=== PATIENT | female | born 1955 | race Caucasian/White ===

== ENCOUNTER 2023-03-28 08:29 | Outpatient (CLI) | payer OTHER, SELFPAY ==
--- NOTE | ~2023-03-28 | CT_ITS ---
CT Scan of the Chest without Contrast: Clinical Indication: Solitary pulmonary nodule Technique: Contiguous sections were acquired throughout the chest without intravenous contrast. Dose reduction technique was used on this scan by utilizing automated exposure control and iterative recon struction technique. The dose-length product (DLP) was 108.24 mGy-cm. Findings: There is no evidence of any significant mediastinal, hilar or axillary lymphadenopathy. The mediastin al soft tissues appear normal. There is a large hiatal hernia containing nearly entire stomach. There is no evidence of pleural or pericardial effusion. There is a 3 mm right lower lobe pulmonary nodule, with probable focal calcification (axial image 64) . There is an additional 3 mm right lower lobe pulmonary nodule (axial and 66). 2 mm right middle lob e pulmonary nodule present (axial image 76). There is a 5 mm pleural-based nodular opacity at the ext jackie right lung base (axial image 107). There is a 4 mm nodule at the left lung base (axial image 77) . Images through the upper abdomen reveal gallstones. Impression: Subcentimeter pulmonary nodules, as detailed above. According to Fleischner Society criteria, for a l ow-risk patient, no further follow-up required. For a high-risk patient, consider 12 month follow-up CT. Large hiatal hernia containing essentially the entire stomach. Cholelithiasis. Reviewed, dictated and finalized at location . Impression: Subcentimeter pulmonary nodules, as detailed above. According to Fleischner Soc iety criteria, for a low-risk patient, no further follow-up required. For a hig h-risk patient, consider 12 month follow-up CT. Large hiatal hernia containing essentially the entire stomach. Cholelithiasis.
== END 2023-03-28 08:30 | disposition home or self-care (01) ==
PROVIDERS: PCP Family Medicine; Visit Provider Physician Assistant
DX: R91.1 Solitary pulmonary nodule (principal); K80.20 Calculus of gallbladder without cholecystitis without obstruction; K44.9 Diaphragmatic hernia without obstruction or gangrene
CPT/HCPCS: 71250

== ENCOUNTER 2023-04-05 09:48 | Outpatient (CLI) | payer OTHER, SELFPAY ==
--- NOTE | 2023-04-05 10:11 | EST_ITS ---
Patient Info Name: Art York Age: 68 years : 1955 Gender: Female Ht: 63 in Wt: 161 lbs BSA: 1.82 m2 HR: 81 bpm BP: 157 / 81 mmHg Heart Rhythm: Sinus Rhythm Exam Date: 04/05/2023 10:20 AM Exam Location: [facility] Stress Patient Status: Outpatient Admit Date: 04/05/2023 Staff Ordering Physician: Taco Nath PA-C Attending Provider: Taco Nath PA-C Exercise Technologist: Kim Espino CT Exercise Physician: Saulo Holt DO Exam Type: CA stress test treadmill Study Info Indications R06.02 - Shortness of breath A treadmill exercise stress test was performed. Summary 1. 1. Negative Russ exercise stress test for ischemic ST changes by ECG criteria. 2. 2. Poor functional capacity, achieving 4 METs of workload. 3. 3. Baseline hypertension. 4. 4. Rapid HR response to exercise. 5. 5. Appropriate HR recovery at 1 minute post exercise. 6. 6. No imaging with stress testing. 7. 7. Patient informed of the above results. Protocol: Russ Stress ECG Details Stage: REST Duration (min): 1 min : 14 sec Speed (mph): 0.0 Grade (%): 0 HR (bpm): 71 SBP (mmHg): 151 DBP (mmHg): 78 METS: --- Stage: REST Duration (min): 5 min : 20 sec Speed (mph): 0.0 Grade (%): 0 HR (bpm): 86 SBP (mmHg): 151 DBP (mmHg): 78 METS: --- Stage: STAGE 1 Duration (min): 1 min : 0 sec Speed (mph): 1.7 Grade (%): 10 HR (bpm): 134 SBP (mmHg): 151 DBP (mmHg): 78 METS: --- Stage: STAGE 1 Duration (min): 1 min : 44 sec Speed (mph): 1.7 Grade (%): 10 HR (bpm): 147 SBP (mmHg): 151 DBP (mmHg): 78 METS: --- Stage: RECOVERY Duration (min): 0 min : 15 sec Speed (mph): 0.0 Grade (%): 0 HR (bpm): 148 SBP (mmHg): 151 DBP (mmHg): 78 METS: --- Stage: RECOVERY Duration (min): 1 min : 15 sec Speed (mph): 0.0 Grade (%): 0 HR (bpm): 112 SBP (mmHg): 151 DBP (mmHg): 78 METS: --- Stage: RECOVERY Duration (min): 2 min : 16 sec Speed (mph): 0.0 Grade (%): 0 HR (bpm): 96 SBP (mmHg): 151 DBP (mmHg): 78 METS: --- Stage: RECOVERY Duration (min): 3 min : 15 sec Speed (mph): 0.0 Grade (%): 0 HR (bpm): 75 SBP (mmHg): 165 DBP (mmHg): 76 METS: --- Stage: RECOVERY Duration (min): 3 min : 23 sec Speed (mph): 0.0 Grade (%): 0 HR (bpm): 75 SBP (mmHg): 165 DBP (mmHg): 76 METS: --- Rest HR: 86 bpm Peak HR: 148 bpm Rest Sys BP: 151 mmHg Peak Sys BP: 165 mmHg Max Pred HR: 154 bpm % Max Pred HR: 96 % Target HR: 131 bpm Max RPP: 24,420 bpm*mmHg Madrid Score: -3 Termination Reason: Reached target heart rate or workload Cardiac Symptoms: Shortness of breath Max ST Seg Deviation: 1.00 mm Total Time: 1 min : 44 sec Rest Joaquin BP: 78 mmHg Peak Joaquin BP: 76 mmHg Angina Score: None Total METS: 4.0 Resting ECG Sinus rhythm. Stress ECG No ST changes. Arrhythmias None. Report Signatures
== END 2023-04-05 09:49 | disposition home or self-care (01) ==
PROVIDERS: PCP Family Medicine; Visit Provider Physician Assistant
DX: R06.02 Shortness of breath (principal)
CPT/HCPCS: 93017

== ENCOUNTER → 2023-04-10 10:12 | Outpatient (CLI) | payer OTHER, SELFPAY ==
--- NOTE | ~2023-04-10 | XR_ITS ---
EXAMINATION: XR UGIAC w kub DATE: 04/10/2023 11:11 INDICATION: Diaphragmatic hernia without obstruction TECHNIQUE: The patient drank thick barium, gas-producing crystals, and thin barium. A total of 591 fl uoroscopic images of the esophagus, stomach, and proximal small bowel were obtained. Fluoroscopy expo sure time was 1.7 minutes. Total DAP was 10.508 Gycm^2 COMPARISON: None. FINDINGS: The esophagus is normal without mass or stricture. Esophageal motility is normal. There is a large sliding-type hiatal hernia which includes essentially the entire stomach at the gastroesophag eal junction at the level of the thoracic hiatus. There is organoaxial volvulus at the greater curvat ure of the stomach positioned cephalad to the gastroesophageal junction.. There was no gastroesophage al reflux with provocative maneuvers. The stomach and proximal small bowel are otherwise normal. IMPRESSION: 1. Large sliding-type hiatal hernia with organoaxial volvulus. Reviewed, dictated and finalized at location B.
== END ==
PROVIDERS: PCP Family Medicine; Visit Provider Surgery
DX: K44.9 Diaphragmatic hernia without obstruction or gangrene (principal)
CPT/HCPCS: 74246

== ENCOUNTER 2023-06-30 08:29 | Outpatient (CLI) | payer OTHER, SELFPAY ==
[2023-06-30 09:21] LABS: Hematocrit 43.4 % (37.0-47.0); Hemoglobin 14.4 g/dL (12.0-15.0)
== END 2023-06-30 08:30 | disposition home or self-care (01) ==
LOC: ANHSURGERY 08:34
PROVIDERS: Anesthesiology; PCP Family Medicine; Visit Provider Surgery
DX: K44.9 Diaphragmatic hernia without obstruction or gangrene (principal)
CPT/HCPCS: 36415; 85014; 85018; 86850; 86900; 86901

== ENCOUNTER 2023-07-05 14:06 | Observation (INO) | payer OTHER, SELFPAY ==
[2023-06-29 13:55] VITALS: BMI 28.0
--- NOTE | 2023-06-29 14:24 | PC.NURSE ---
Addendum entered by Nelida Altamirano RN 06/29/23 14:27: HIBICLENS SHOWER ON MORNING OF SURGERY, PATIENT RELAYS UNDERSTANDING. Original Note: Report to the Outpatient Waiting Room, entrance under the green pavilion located off [facility], at time __8:30AM on date _07/04/23 . Planned Procedure Time: ___10:30AM . Time changes happen often and if your time is changed the preop area will call you the afternoon before. - You and your visitor will be asked to self-screen and do not enter if you have any COVID symptoms. - A mask is optional within the hospital at this time. CLEAR LIQUIDS DAY BEFORE SURGERY PER DR NICHOLAS(PER PATIENT). PER ANESTHESIA, Patients may have clear liquids (water, carbonated beverages, clear teas, apple juice) until 3 hours prior to surgery with a maximum of 20 ounces. Take the following medications with a SIP of water the morning of surgery: ___LEVOTHYROXINE, ONDANSETRON NEEDED DO NOT STOP ANY OF YOUR OTHER PRESCRIPTION MEDICATIONS PRIOR TO SURGERY ?EXCEPT THE FOLLOWING Medications to discontinue per physician ___HOLD ALL VITAMINS/SUPPLEMENTS 3 DAYS PRE-OP PER ANESTHESIA Date to take last dose____06/30/23 Please no make-up, nail amharic, hairspray, perfume, deodorant, or body powder the day of surgery. No jewelry (including any body piercings) or valuables the day of surgery, leave them at home. Please take a shower or bath the night before, or the morning of, surgery with an antibacterial soap. Wear comfortable, loose fitting clothing. - Jewelry must be removed prior to entering the operating room. Rings and piercings that are not removed may be cut off. - The hospital will not accept responsibility for valuables. - Please leave all valuables, including medications, at home the day of surgery. If you are going home after surgery, a licensed route sales delivery drivers supervisor must drive you home. - NO public transportation without another adult if you receive anesthesia. - We recommend that an adult stay with you for 24 hours following discharge. - We also recommend that you do not drive, make important decision, drink alcoholic beverages, or take any drugs that were not prescribed by your health care provider for at least 24 hours after your discharge time. Follow any additional instructions given to you from your surgeon. If you or anyone in your household have experienced Covid symptoms in the past week, please notify your surgeon or the nurse liaison at the phone number below for possible testing. Telephone instructions given to __PATIENT and asked if any additional questions and then verbalized understanding. Patient advised to call surgeon office or pre surgery nurse liaison [phone] if any additional questions.
[2023-07-04] VITALS (15 sets, daily range): BP systolic 122–150; BP diastolic 50–80; PULSE 74–108; RESP 12–20; TEMP 36.2–37; O2SAT 94–100; BMI 27.0
[2023-07-04] MEDS: LACTATED RINGERS 1,000 ML 30 ML IV CONT ×2 (08:32→13:59)
[2023-07-04] MEDS: KETOROLAC 15 MG/ML VIAL (*BKC) IV PUSH (08:34)
[2023-07-04] MEDS: ACETAMINOPHEN 500 MG TABLET 1000 MG PO ×3 (08:34→22:33)
[2023-07-04] MEDS: FAMOTIDINE 20 MG/2 ML VIAL IV PUSH (08:54)
[2023-07-04] MEDS: diphenhydrAMINE HCl INJ 50 MG/ML VIAL 25 MG IV PUSH (08:54)
--- NOTE | 2023-07-04 09:34 | WPDANESEPPF ---
Anes - Initial Pre Proc Eval Procedure: Operation Date: 07/04/23 10:30 Proposed Procedures p Laparoscopic Paraesophageal Hernia Repair with Fundoplication, Possible Mesh, Davinci Assisted - Reno Black DO Date/Time: 07/04/23 09:34 Surgeon: Reno Black DO Pre Op Diagnosis: Paraesophageal Hernia Patient Data Age: 68 Gender: F Height: 1.6 m Weight: 69.3 kg Last Vital Signs Temp 36.6 C 07/04/23 07:52 Pulse 74 07/04/23 07:52 Resp 18 07/04/23 07:52 BP 150/68 H 07/04/23 07:52 Pulse Ox 99 07/04/23 07:52 O2 Del Method Room Air 07/04/23 07:52 Allergies Allergy/AdvReac Type Severity Reaction Status Date / Time apple Allergy Rash Verified 07/04/23 07:59 Iodinated Contrast Media AdvReac Mild Vomiting, Verified 07/04/23 07:59 NAUSEA Home Medications Medication Instructions Recorded Confirmed Type amlodipine 10 mg tablet 10 mg PO HS 03/17/23 07/04/23 History atorvastatin 20 mg tablet 20 mg PO HS 03/17/23 07/04/23 History fluoxetine 10 mg capsule 10 mg PO HS 03/17/23 07/04/23 History latanoprost 0.005 % eye drops 1 drp EACH EYE HS 03/17/23 07/04/23 History levothyroxine 100 mcg tablet 100 mcg PO QAM 03/17/23 07/04/23 History levothyroxine 112 mcg tablet 112 mcg PO QAM 03/17/23 07/04/23 History pantoprazole 40 mg tablet,delayed 40 mg PO HS 03/17/23 07/04/23 History release ondansetron HCl 4 mg tablet 4 mg PO Q6H PRN Nausea 06/29/23 07/04/23 History vitamin C 500 mg-multivitamin with 1 tablet PO HS 06/29/23 07/04/23 History minerals chewable tablet (Emergen-C) Patient hx anesthesia problems: none Family hx anesthesia problems: none Results Review: All pre-operative results and documents have been reviewed as part of the pre-operative evaluation. [facility] Past Medical History Medical History Anxiety Former smoker quit age 22 Gallbladder disorder Glaucoma Hiatal hernia UGI 7.3.23: Large sliding-type hiatal hernia with organoaxial volvulus. Surgical History Surgical History History of appendectomy 1973 History of hysterectomy 1992 History of tonsillectomy 1957 History of tubal ligation 1988 Family History Family History Father Alcoholism Cancer Daughter Alcoholism Mother Hypertension Cancer Grandparent Cerebrovascular accident Other Asthma Social History Social History Smoking packs per day: 0.5 Smoking cigarettes per day: 10.0 Years smoked: 4 Smoking pack-years: 2.00 Smoking status: Former smoker Tobacco type: cigarettes Smoking end date: 04/08/79 Substance use: never Substance use type: does not use Lack of Transportation: No Lack of Food: Never True Current Housing: I Have Housing Concerned About Future Housing: No Difficulty Paying Gas/Electric Bills: No Difficulty Paying for Meds: No Currently Unemployed: No Education: Trade/Vocational Certificate Difficulty w/ Childcare or Family Care: No Living arrangements: with family Additional living arrangements comments: , SON, [id number] Occupation/Education: retired Spiritual care concerns: No Anes - Eval Final PreProcedure Day of Procedure 07/04/23 09:34 Patient weight: overweight Heart: regular rate and rhythm Lungs: clear to auscultation Airway: Mallampati scale class II Neurological: alert and oriented Last oral intake: >/= 8 hours ASA classification: II Emergent: no Anesthetic plan: proceed Anesthesia type and monitoring: general ETT and standard monitoring Results Review: All pre-operative results and documents have been reviewed as part of the pre-operative evaluation. Informed Consent: The patient's anesthetic plan and its attendant risks and benefits were discussed with the patie
--- NOTE | 2023-07-04 10:06 | PM.IMHP ---
H&P: HPI History of Present Illness Date/Time: 07/04/23 10:06 Chief Complaint: Hiatal hernia Narrative: This is a 68-year-old woman who presents for hiatal hernia repair. She has been experiencing chest pressure and shortness of breath, and she has a lot of discomfort after eating. She was found to have a large hiatal hernia containing most of her stomach. She underwent further workup including upper GI and esophageal manometry. Further discussions were made with the patient and decision was made to proceed with hiatal hernia repair. Review of Systems Review of Systems: All systems reviewed & are unremarkable except as noted in HPI and below Constitutional: Constitutional: Denies chills, Denies fever(s), Denies headache(s) and Denies weight loss Eyes: Eyes: Denies change in vision ENT: Denies dizziness, Denies headache(s), Denies neck mass and Denies throat swelling Cardiovascular: Cardiovascular: Denies chest pain, Denies lightheadedness and Denies dyspnea Respiratory: Respiratory: Denies cough, Denies dyspnea and Denies wheezing Gastrointestinal: Gastrointestinal: Denies abdominal pain, Denies change in bowel habits, Denies nausea and Denies vomiting Genitourinary: Genitourinary: Denies hematuria and Denies dysuria Musculoskeletal: Musculoskeletal: Reports as per HPI Integumentary/Breasts: Skin/Breast: Reports as per HPI Neurologic: Denies dizziness and Denies headache(s) Allergic/Immunologic: Allergic/Immunologic: Denies throat swelling and Denies wheezing PMFSH Past Medical History Medical History Anxiety Former smoker quit age 22 Gallbladder disorder Glaucoma Hiatal hernia UGI 7.3.23: Large sliding-type hiatal hernia with organoaxial volvulus. Surgical History Surgical History History of appendectomy 1972 History of hysterectomy 1992 History of tonsillectomy 1957 History of tubal ligation 1988 Family History Family History Father Alcoholism Cancer Daughter Alcoholism Mother Hypertension Cancer Grandparent Cerebrovascular accident Other Asthma Social History Social History Smoking packs per day: 0.5 Smoking cigarettes per day: 10.0 Years smoked: 4 Smoking pack-years: 2.00 Smoking status: Former smoker Tobacco type: cigarettes Smoking end date: 04/08/79 Substance use: never Substance use type: does not use Lack of Transportation: No Lack of Food: Never True Current Housing: I Have Housing Concerned About Future Housing: No Difficulty Paying Gas/Electric Bills: No Difficulty Paying for Meds: No Currently Unemployed: No Education: Trade/Vocational Certificate Difficulty w/ Childcare or Family Care: No Living arrangements: with family Additional living arrangements comments: , SON, [id number] Occupation/Education: retired Spiritual care concerns: No Meds Home Medications and Allergies Home Medications Medication Instructions Recorded Confirmed Type amlodipine 10 mg tablet 10 mg PO HS 03/17/23 07/04/23 History atorvastatin 20 mg tablet 20 mg PO HS 03/17/23 07/04/23 History fluoxetine 10 mg capsule 10 mg PO 03/17/23 07/04/23 History latanoprost 0.005 % eye drops 1 drp EACH EYE 03/17/23 07/04/23 History levothyroxine 100 mcg tablet 100 mcg PO QAM 03/17/23 07/04/23 History levothyroxine 112 mcg tablet 112 mcg PO QAM 03/17/23 07/04/23 History pantoprazole 40 mg tablet,delayed 40 mg PO HS 03/17/23 07/04/23 History release ondansetron HCl 4 mg tablet 4 mg PO Q6H PRN Nausea 06/29/23 07/04/23 History vitamin C 500 mg-multivitamin with 1 tablet PO HS 06/29/23 07/04/23 History minerals chewable tablet (Emergen-C) Allergies Allergy/AdvReac Type Severity Reaction Statu
--- NOTE | 2023-07-04 10:10 | WPDHPUPDATE1 ---
History and Physical Update Update Date/Time: 07/04/23 10:10 History and Physical has been reviewed, including an updated exam of the patient. There are NO changes in the patient's condition. Risks, benefits, and alternatives have been discussed and questions answered. Patient agrees to proceed with procedure.
[2023-07-04] MEDS: ceFAZolin 2 GM/D5W 50 ML 2 GM/50 ML BAG IVPB (10:37)
[2023-07-04] MEDS: BUPivacaine HCL 0.5% PF 30 ML VIAL INFILTRATE (11:48)
--- NOTE | 2023-07-04 13:45 | W.PM.PROC2 ---
Procedure Note - Detailed Date of Procedure 07/04/23 Pre-op Diagnosis Paraesophageal Hernia Post-op Diagnosis Same Procedure Performed Robotic assisted laparoscopic paraesophageal hernia repair with 270 degree fundoplication Surgeon Reno Black, DO Anesthesia General and Local (0.5% bupivicaine with epi) Indications This is a 68-year-old woman who presented with significant chest discomfort and bloating after eating. She had difficulty tolerating solid food without having problems with regurgitation and epigastric and substernal pain. She has thorough workup with prior CT abdomen and pelvis as well as CT chest. This demonstrated a large hiatal hernia containing most of her stomach. She has also had EGD and upper GI which demonstrated similar findings. She was then sent for esophageal manometry which showed a hypotensive lower esophageal sphincter but normal esophageal motility. Discussions were made with the patient about treatment options and decision was made to proceed with robotic assisted laparoscopic hiatal hernia repair with fundoplication and possible mesh. Findings Robotic assisted laparoscopic paraesophageal hernia repair was performed. The patient was found to have a large paraesophageal hernia containing large portion of her stomach. The hernia sac was carefully dissected out of the hiatus and mediastinum and was excised. The crura were reapproximated using 2-0 permanent V lock running suture. The crura appeared to come together well and did not require mesh placement. I did place 1 anterior suture on the crura using a 2-0 Ethibond simple interrupted suture to help approximate the crura around the esophagus. A 270 degree fundoplication was then performed. The hernia sac was sent to lab for pathology. No other significant abnormalities were identified. Description of Procedure Procedure as well as risks, benefits, and alternatives were discussed with the patient. Written consent was obtained and placed in chart prior to procedure. Patient was brought back to surgical suite. She was placed supine on operating table. Time-out was done to confirm patient and procedure. She was then intubated by the anesthesia department. Her abdomen was prepped and draped in sterile fashion using chlorhexidine prep. 0.5% bupivacaine with epinephrine was infiltrated locally around each area for port placement. An 8 mm incision was made in the left upper quadrant 2 cm inferior to the costal margin in the mid clavicular line. A 5 mm Optiview trocar was then advanced through the abdominal layers under direct visualization. Once inside the abdominal cavity, carbon dioxide insufflation was used to create a pneumoperitoneum. The camera was inserted in the abdomen was inspected. No immediate abnormalities were identified. Another 8 mm camera port was placed about 15 cm inferior to the xiphoid just to the left of midline under direct visualization. An 8 mm port was placed in the anterior axillary line on the left upper quadrant at about the same transverse plane as the camera port. An 8 mm port was placed in the right upper quadrant and another 8 mm AirSeal assist port was placed in right lower quadrant just to the right of the umbilicus. A 5 mm incision was made in the subxiphoid region and the Ron liver retractor was inserted through this incision into the abdominal cavity to lift up the left lobe of the liver. This was secured in place to the bed of the table. The patient was then placed in 30? reverse Trendelenburg. The robotic arms were secured to the ports and the robotic camera and instruments were inserted. A force bipolar grasper was placed in the right upper quadrant port. The vessel sealer was placed in the midclavicular left upper quadrant port and a Cadiere grasper was placed in the anterior axillary line left upper quadrant port. I then moved over to the robotic console took control of the camera and instruments. A careful thorough
[2023-07-04] MEDS: IBUPROFEN IV 800 MG/200 ML 800 MG/200 ML BAG 400 MG IVPB ×2 (16:22→20:35)
--- NOTE | 2023-07-04 16:39 | ADMGEN ---
This patient, Art York, was admitted to [facility] Surg Room 314-02. Patient/family oriented to hospital policies and general routines including ID bracelet, bed and alarms, visiting hours, pain management, procedures, bathroom and other care routines, personal items, smoking policy, room service/diet, and visiting hours. Information on how to activate the Rapid Response Team has been discussed. Patient/Family are encouraged to report perceived risks to care and to ask questions if they do not understand what they are told or what they should do. patient here with scheduled hiatal hernia repair, vs stable, patient denies pain, only discomfort between shoulder blades, but was informed in PACU this is a normal reaction to the surgery. family at bedside. denies any questions.
[2023-07-04] MEDS: amLODIPine BESYLATE 5 MG TABLET 10 MG PO (20:29)
[2023-07-04] MEDS: FLUoxetine HCL 10 MG CAPSULE PO (20:29)
[2023-07-04] MEDS: PANTOPRAZOLE 40 MG TABLET PO (20:29)
[2023-07-04] MEDS: ATORVASTATIN 20 MG TABLET PO (20:29)
[2023-07-04] MEDS: LATANOPROST 0.005% OP SOLN 2.5 ML BTL 1 DROP EACH EYE (20:29)
[2023-07-04] MEDS: ONDANSETRON INJ 4 MG/2 ML VIAL IV PUSH (20:34)
[2023-07-05] VITALS (7 sets, daily range): BP systolic 123–140; BP diastolic 56–72; PULSE 60–82; RESP 16–18; TEMP 35.8–36.9; O2SAT 96–99
--- NOTE | ~2023-07-05 | XR_ITS ---
Clinical Indication: Cough PA and lateral views of the chest: Comparison: None Findings: There are probable minimal bilateral pleural effusions and minimal left basilar atelectasis . Cardiomediastinal silhouette is within normal limits. Bones and soft tissues are unremarkable. Impression: Minimal bilateral pleural effusions and minimal left basilar atelectasis. Reviewed, dictated and finalized at location . Impression: Minimal bilateral pleural effusions and minimal left basilar atelectasis.
[2023-07-05] MEDS: ONDANSETRON INJ 4 MG/2 ML VIAL IV PUSH (02:15)
[2023-07-05] MEDS: IBUPROFEN IV 800 MG/200 ML 800 MG/200 ML BAG 400 MG IVPB ×2 (05:01→09:28)
[2023-07-05] MEDS: ACETAMINOPHEN 500 MG TABLET 1000 MG PO (05:03)
[2023-07-05] MEDS: LEVOTHYROXINE SODIUM 112 MCG TABLET PO (05:03)
[2023-07-05 06:44] LABS: Hematocrit 41.8 % (37.0-47.0); Hemoglobin 13.9 g/dL (12.0-15.0); Mean Corpuscular HGB Conc 33.3 g/dl (32-36); Mean Corpuscular Hemoglobin 29.6 pg (26-34); Mean Corpuscular Volume 88.9 fl (80-100); Platelet Count Result 239 k/mm3 (150-375); Red Cell Distribution Width 12.3 % (11.5-14.5); White Blood Count 10.4 K/mm3 (4.5-10.0)
[2023-07-05 07:00] LABS: Anion Gap 7 mmol/L (8-16); Blood Urea Nitrogen 9 mg/dL (7-17); Calcium 8.6 mg/dL (8.4-10.2); Carbon Dioxide 29 mmol/L (22-30); Chloride 103 mmol/L (98-107); Estimated CRCL calculation 56 ml/min; Estimated Glomerular Filt Rate > 60; Glucose 118 mg/dL (65-110); Potassium 4.1 mmol/L (3.4-5.0); Sodium 139 mmol/L (137-145)
[2023-07-05] MEDS: ENOXAPARIN 40 MG/0.4 ML SYRINGE SUB-Q (09:29)
--- NOTE | 2023-07-05 10:39 | WPDANESPN ---
Anes - Prog Note Post-Op Date/Time: 07/05/23 10:39 Cardiovascular status: normal Respiratory status: normal Airway patency: baseline Mental status: baseline Post-Op hydration status: normal Vital Signs: Last Vital Signs Temp 36.6 C 07/05/23 09:17 Pulse 73 07/05/23 09:17 Resp 16 07/05/23 09:17 BP 123/72 07/05/23 09:17 Pulse Ox 98 07/05/23 09:17 O2 Del Method Room Air 07/04/23 22:58 O2 Flow Rate 8 07/04/23 14:25 Pain Score (VAS): 12/16 I/O: Intake & Output 07/04/23 07/05/23 07/05/23 23:59 07:59 15:59 Intake Total 880 450 500 Balance 880 450 500 Laboratory Tests 07/05/23 06:13 07/05/23 06:13 07/05/23 06:13 WBC 10.4 H RBC 4.70 Hgb 13.9 Hct 41.8 MCV 88.9 MCH 29.6 MCHC 33.3 RDW 12.3 Plt Count 239 MPV 11.0 H Sodium 139 Potassium 4.1 Chloride 103 Carbon Dioxide 29 Anion Gap 7 L BUN 9 Creatinine 0.80 Estim Creat Clear Calc 56 Estimated GFR > 60 Glucose 118 H Calcium 8.6 Post-procedural complaints: none Patient Feedback: Patient satisfied with anesthetic care.
--- NOTE | 2023-07-05 11:08 | PM.PNGS ---
Progress Note: A&P Assessment and Plan (1) Hiatal hernia: Code(s): K44.9 - Diaphragmatic hernia without obstruction or gangrene Status: Acute Assessment and Plan: Doing well on postop day 1. Will advance to full liquid diet for lunch today. Due to her concerns with some nausea and regurgitation last night, I would like to keep her overnight to continue monitoring. Possibly discharge tomorrow if tolerating full liquids. Will plan to keep patient on full liquid diet for 2 weeks postop. Subjective Subjective Date/Time Seen: 07/05/23 11:08 Interval history: Doing well on postop day 1. Had a couple problems with regurgitation of some white phlegm last night after trying a couple larger bites of Jell-O. That has resolved and she is tolerating clear liquids this morning. Pain is minimal at this point. No other significant complaints. Exam GI: Inspection: non-distended and incision (Intact with glue) GI Palp: Yes Soft to palpation, Yes Tenderness to palpation present (GI) (Mild incisional) and No Guarding due to palpation present (GI) Objective Data Vital Signs Vital Signs: Vital Signs - 24 hr 07/04/23 13:59 07/04/23 14:10 07/04/23 14:25 Temperature 36.2 C L Pulse Rate 107 H 108 H 90 Respiratory Rate 14 12 16 Blood Pressure 145/62 H 126/57 L 143/56 H Pulse Oximetry 100 100 100 Oxygen Delivery Simple Face Mask Simple Face Mask Simple Face Mask Oxygen Flow Rate 8 8 8 07/04/23 14:40 07/04/23 14:55 07/04/23 15:10 Temperature Pulse Rate 100 99 90 Respiratory Rate 20 16 14 Blood Pressure 137/58 L 142/50 H 125/55 L Pulse Oximetry 100 97 95 Oxygen Delivery Room Air Room Air Room Air Oxygen Flow Rate 07/04/23 15:25 07/04/23 16:00 07/04/23 16:15 Temperature 36.7 C 36.8 C Pulse Rate 95 89 90 Respiratory Rate 16 18 18 Blood Pressure 135/53 L 141/80 H 136/63 Pulse Oximetry 96 94 96 Oxygen Delivery Room Air Oxygen Flow Rate 07/04/23 16:45 07/04/23 17:17 07/04/23 20:32 Temperature 36.9 C 37.0 C 37.0 C Pulse Rate 92 79 92 Respiratory Rate 18 18 18 Blood Pressure 122/65 122/58 L 140/69 Pulse Oximetry 95 96 95 Oxygen Delivery Oxygen Flow Rate 07/04/23 20:00 07/04/23 22:58 07/05/23 01:17 Temperature 35.9 C L Pulse Rate 82 Respiratory Rate 16 Blood Pressure 137/64 Pulse Oximetry 95 95 98 Oxygen Delivery Room Air Room Air Oxygen Flow Rate 07/05/23 05:17 07/05/23 09:17 07/05/23 08:00 Temperature 35.8 C L 36.6 C Pulse Rate 79 73 Respiratory Rate 18 16 Blood Pressure 140/69 123/72 Pulse Oximetry 97 98 Oxygen Delivery Room Air Oxygen Flow Rate Intake/Output Intake/Output: Intake & Output 07/02/23 07/03/23 07/04/23 07/05/23 23:59 23:59 23:59 23:59 Intake Total 1030 950 Balance 1030 950 Meds/Results Medications: Active Medications Generic Name Dose Route Start Last Admin Trade Name Freq PRN Reason Stop Dose Admin Acetaminophen 1,000 mg 07/05/23 11:00 Acetaminophen Elixir 325 Mg/10.15 Ml Udc PO Q6HR GEORGE Amlodipine Besylate 10 mg 07/04/23 21:00 07/04/23 20:29 Amlodipine Besylate 5 Mg Tablet PO 10 mg HS GEORGE Administration Atorvastatin Calcium 20 mg 07/04/23 21:00 07/04/23 20:29 Atorvastatin 20 Mg Tablet PO 20 mg HS GEORGE Administration Enoxaparin Sodium 40 mg 07/05/23 09:00 07/05/23 09:29 Enoxaparin 40 Mg/0.4 Ml Syringe SUB-Q 40 mg DAILY GEORGE Administration Fluoxetine HCl 10 mg 07/04/23 21:00 07/04/23 20:29 Fluoxetine Hcl 10 Mg Capsule PO 10 mg HS GEORGE Administration Latanoprost 1 drop 07/04/23 21:00 07/04/23 20:29 Latanoprost 0.005% Op Soln 2.5 Ml Btl EACH EYE 1 drop HS GEORGE Administration Levothyroxine Sodium 100 mcg 07/06/23 06:30 Levothyroxine Sodium 100 Mcg Tablet PO Q48H GEORGE Levothyroxine Sodium 112 mcg 07/05/23 06:30 07/05/23 05:03 Levothyroxine Sodium 112 Mcg Tablet PO 112 mcg Q48H GEORGE Administration Morphine Sulfa
[2023-07-05] MEDS: ACETAMINOPHEN ELIXIR 325 MG/10.15 ML UDC 1000 MG PO ×2 (11:58→17:12)
[2023-07-05] MEDS: ATORVASTATIN 20 MG TABLET PO (21:09)
[2023-07-05] MEDS: PANTOPRAZOLE 40 MG TABLET PO (21:09)
[2023-07-05] MEDS: amLODIPine BESYLATE 5 MG TABLET 10 MG PO (21:09)
[2023-07-05] MEDS: FLUoxetine HCL 10 MG CAPSULE PO (21:10)
[2023-07-05] MEDS: LATANOPROST 0.005% OP SOLN 2.5 ML BTL 1 DROP EACH EYE (21:17)
--- NOTE | 2023-07-06 00:06 | ECG_ITS ---
Measurements Intervals [place] Rate: 70 P: 28 MA: 134 QRS: 32 QRSD: 94 T: 42 QT: 368 QTc: 398 Interpretive Statements SINUS RHYTHM MINIMAL Q WAVES- HIGH LATERAL LEADS BASELINE ARTIFACT- I, II, III, AVR, AVL, AVF BORDERLINE ECG NO PREVIOUS ECG AVAILABLE FOR COMPARISON Electronically Signed On 07-06-2023 6:22:34 CDT by Saulo Holt D.O.
[2023-07-06] MEDS: ACETAMINOPHEN ELIXIR 325 MG/10.15 ML UDC 1000 MG PO ×3 (00:18→12:32)
[2023-07-06 05:19] VITALS: BP 125/68; PULSE 84; RESP 15; TEMP 36.8; O2SAT 96
[2023-07-06] MEDS: LEVOTHYROXINE SODIUM 100 MCG TABLET PO (05:55)
[2023-07-06 08:23] VITALS: O2SAT 96
[2023-07-06] MEDS: ENOXAPARIN 40 MG/0.4 ML SYRINGE SUB-Q (08:58)
--- NOTE | 2023-07-06 13:58 | PM.DS ---
DS: Admitting Diagnosis Discharge Date 07/06/2023 Admitting Diagnosis Paraesophageal hernia DS: Discharge Diagnosis Discharge Diagnosis (1) Hiatal hernia: Code(s): K44.9 - Diaphragmatic hernia without obstruction or gangrene Status: Acute DS: Summary Hospital Course Reason for hospitalization: This is a 68-year-old woman who presented with significant chest discomfort and bloating after eating. She had difficulty tolerating solid food without having problems with regurgitation and epigastric and substernal pain. Workup demonstrated a large hiatal hernia containing most of her stomach. She was evaluated as an outpatient and had esophageal manometry. Decision was made to proceed with surgery. Hospital Course: She presented on 07/04/2023 for a robotic assisted laparoscopic paraesophageal hernia repair with [address] Black. She was monitored overnight postoperatively. She was doing well postop day 1. She did have some nausea and regurgitation the night after surgery. She was advanced to full liquids. She was encouraged to be up ambulating in the halls and increase her activity. Today, she is tolerating a full liquid diet. Nausea has resolved. She is tolerating activity. She did have an episode of left-sided chest pain and left shoulder pain last night that woke her from sleep. She had a stat EKG that showed sinus rhythm without any acute ischemic changes. She ambulated in the halls and her pain quickly resolved. She denies any chest or shoulder pain this morning. He denies any shortness of breath or other complaints. Postoperative incisional pain is well controlled with Tylenol. Discussed with Dr. Black and patient is stable for discharge today. Status at Discharge Functional status at discharge: independent ambulation Overall status at discharge: patient is progressing back to baseline Time Spent with Patient Time attestation: Total time spent providing and/or coordinating discharge services: Time spent: Less than 30 minutes Exam Const: General: comfortable, no acute distress and awake Orientation/consciousness: patient oriented x3 Resp: Effort & Inspection: normal respiratory effort Auscultation: clear to auscultation bilaterally Cardio: Rate: regular rate Rhythm: regular rhythm GI: Inspection: non-distended and incision (incisions dry and intact) GI Palp: Yes Soft to palpation and Yes Tenderness to palpation present (GI) (incisional) Auscultation: normal bowel sounds Neuro: General: moves all extremities and no focal motor deficits Extrem: General: no calf tenderness and no edema Psych: Mental Status: mental status grossly normal Insight: Good insight present (Psych) DS: Data Data Completed and Pending Completed studies during hospitalization: Pending at discharge 07/04/23 13:38 Surgical [PTH] Routine Procedures/Treatments: Procedures Operation Date: 07/04/23 10:30 Actual Procedure Side Surgeon p Laparoscopic Paraesophageal Hernia Repair with Fundoplication, Davinci Assisted Not Applicable [place] Black, DO Discharge Plan Discharge Attending physician on discharge: [place]o Black Discharging Clinician: Maria Fernanda Fox Anticipated Discharge Date/Time: 07/06/23 14:04 Patient Disposition: Home, Self-Care Activity: may shower Diet: other - see discharge instructions Wound Care Instructions: incision open to air Discharge Instructions: General surgery discharge instructions May shower, no soaking in bath for 2 weeks No heavy lifting more than 10-15 lb for 2 weeks or until seen by the surgeon No driving for 3 days or while taking narcotic pain medication Up walking 10-30 minutes 3 times per day Follow-up with Dr. Black in the office as scheduled on 07/24/2023 at 10:45 a.m. Continue a FULL LIQUID diet until your diet is advanced by your surgeon Patient Instructions: Antibiotic Form Stand Alone Forms: Gener
== END 2023-07-06 15:20 | disposition home or self-care (01) ==
LOC: ANHSURGERY 14:10 → ANH3MEDSUR 14:10
PROVIDERS: Admitting Provider Surgery; PCP Family Medicine; Visit Provider Surgery
PROC: 0DV44ZZ Restriction of Esophagogastric Junction, Percutaneous Endoscopic Approach (ICD-10-PCS; CPT 43280; principal; 2023-07-04 10:30)
DX: K44.9 Diaphragmatic hernia without obstruction or gangrene (principal); K21.9 Gastro-esophageal reflux disease without esophagitis; F41.9 Anxiety disorder, unspecified; H40.9 Unspecified glaucoma; K82.9 Disease of gallbladder, unspecified; R05.9 Cough, unspecified; R11.0 Nausea; E66.3 Overweight; Z68.27 Body mass index [BMI] 27.0-27.9, adult; Z87.891 Personal history of nicotine dependence
CPT/HCPCS: 43281; S2900; 36415; 71046; 80048; 85027; 88302; 93005; A9270; G0378; G0379; J0690; J1100; J1170; J1200; J1650; J1741; J1885; J2250; J2405; J2704; J3010; J7120

== ENCOUNTER 2024-01-02 08:02 | Outpatient (CLI) | payer OTHER, SELFPAY ==
[2024-01-02 14:16] LABS: Alanine Aminotransferase 22 U/L (6-35); Albumin Level 4.2 g/dL (3.5-5.1); Alkaline Phosphatase 69 U/L (38-126); Anion Gap 4 mmol/L (4-12); Aspartate Amino Transferase 51 U/L (14-36); Bilirubin,Total 0.8 mg/dL (0.2-1.3); Blood Urea Nitrogen 14 mg/dL (7-17); Calcium 9.5 mg/dL (8.4-10.2); Carbon Dioxide 31 mmol/L (22-30); Chloride 104 mmol/L (98-107); Cholesterol 145 mg/dL (0-200); Estimated Glomerular Filt Rate > 60; Glucose 82 mg/dL (65-110); HDL Direct 42 mg/dL; Potassium 4.2 mmol/L (3.4-5.0); Sodium 139 mmol/L (137-145); Triglycerides 81 mg/dL (<150)
[2024-01-02 14:27] LABS: LDL Cholesterol Direct 88 mg/dL
[2024-01-02 14:43] LABS: Thyroid Stimulating Hormone 0.026 uIU/mL (0.465-4.680)
[2024-01-02 15:24] LABS: Hepatitis C Virus Antibody Negative (Negative)
== END 2024-01-02 08:03 | disposition home or self-care (01) ==
LOC: ANHGOSHLAB 08:03
PROVIDERS: PCP Family Medicine; Visit Provider Family Medicine
DX: E78.2 Mixed hyperlipidemia (principal); E03.9 Hypothyroidism, unspecified; I10 Essential (primary) hypertension; Z11.59 Encounter for screening for other viral diseases
CPT/HCPCS: 36415; 80053; 80061; 84443; 86803

== ENCOUNTER 2024-02-03 18:41 | Emergency (ER) | payer OTHER, SELFPAY ==
--- NOTE | 2024-02-03 18:44 | ED.GENADULT ---
HPI - General Adult General Chief complaint: Upper Respiratory Infection Stated complaint: Cold Symptoms Time Seen by Provider: 02/03/24 18:44 Source: patient Mode of arrival: ambulatory Limitations: no limitations History of Present Illness HPI narrative: 68-year-old female patient presents to [facility] with complaints of congestion to her throat. Patient states she has had what she defines as cold symptoms for the past 2 weeks. Patient states that symptoms have gotten better but continues have congestion to the throat did have a runny nose but now feels like she has got a bunch of drainage to the back the throat. Denies any chest pain or shortness of breath. Denies fevers, body aches or chills. Patient states she has only been taking Tylenol [id number] has not tried any other medications [id number]. Related Data Home Medications Medication Instructions Recorded Confirmed amlodipine 10 mg tablet 10 mg PO HS 03/17/23 02/03/24 atorvastatin 20 mg tablet 20 mg PO HS 03/17/23 02/03/24 fluoxetine 10 mg capsule 10 mg PO HS 03/17/23 02/03/24 latanoprost 0.005 % eye drops 1 drp EACH EYE HS 03/17/23 02/03/24 ondansetron HCl 4 mg tablet 4 mg PO Q6H PRN Nausea 06/29/23 02/03/24 Allergies Allergy/AdvReac Type Severity Reaction Status Date / Time apple Allergy Rash Verified 02/03/24 19:01 Iodinated Contrast Media AdvReac Mild Vomiting, Verified 02/03/24 19:01 NAUSEA Review of Systems Review of Systems: CONSTITUTIONAL: Denies fever, chills, or sweats. EYES: Denies visual changes, redness, or discharge. ENT: Positive rhinorrhea, congestion, denies sore throat, or otalgia. CARDIOVASCULAR: Denies chest pain, palpitations, or edema. RESPIRATORY: Denies cough or dyspnea. GASTROINTESTINAL: Denies abdominal pain, nausea, vomiting, or diarrhea. GENITOURINARY: Denies dysuria or hematuria. SKIN: Denies rash or itching. MUSCULOSKELETAL: Denies back pain, joint pain, or myalgia. NEUROLOGIC: Denies headache, numbness, or weakness. PSYCHIATRIC: Denies anxiety or depression. [facility] Past Medical History Medical History Abnormal liver function Anxiety Encounter for surgical aftercare following surgery on the digestive system Former smoker quit age 22 Gallbladder disorder Glaucoma Hiatal hernia UGI 7.3.23: Large sliding-type hiatal hernia with organoaxial volvulus. Surgical History Surgical History History of appendectomy 1972 History of hernia repair Robotic assisted laparoscopic paraesophageal hernia repair with 270 degree fundoplication on 07/04/23 [facility] History of hysterectomy 1992 History of tonsillectomy 1957 History of tubal ligation 1988 Family History Family History Father Alcoholism Cancer Daughter Alcoholism Mother Hypertension Cancer Grandparent Cerebrovascular accident Other Asthma Social History Social History Smoking packs per day: 0.5 Smoking cigarettes per day: 10.0 Years smoked: 4 Smoking pack-years: 2.00 Smoking status: Former smoker Alcohol intake: never Substance use: never Substance use type: does not use Do You Feel Safe in your Home?: Yes Lack of Transportation: No Lack of Food: Never True Current Housing: I Have Housing Concerned About Future Housing: No Difficulty Paying Gas/Electric Bills: No Difficulty Paying for Meds: No Currently Unemployed: No Education: Trade/Vocational Certificate Difficulty w/ Childcare or Family Care: No Living arrangements: with family Additional living arrangements comments: , SON, [id number] Occupation/Education: retired Spiritual care concerns: No Comments At the time of my signature I agree with nursing past medical history, surgical, social, and
[2024-02-03 18:47] VITALS: BP 152/62; PULSE 78; RESP 16; TEMP 37.2; O2SAT 98
== END 2024-02-03 19:09 | disposition home or self-care (01) ==
PROVIDERS: Emergency Provider Nurse Practitioner Family; PCP Family Medicine
DX: R09.82 Postnasal drip (principal); J30.9 Allergic rhinitis, unspecified; Z87.891 Personal history of nicotine dependence; F41.9 Anxiety disorder, unspecified; H40.9 Unspecified glaucoma
CPT/HCPCS: 99211; G0463

== ENCOUNTER 2024-05-03 07:59 | Outpatient (CLI) | payer OTHER, SELFPAY ==
[2024-05-03 19:36] LABS: Alanine Aminotransferase 21 U/L (6-35); Albumin Level 3.9 g/dL (3.5-5.1); Alkaline Phosphatase 67 U/L (38-126); Aspartate Amino Transferase 25 U/L (14-36); Bilirubin,Total 0.5 mg/dL (0.2-1.3)
[2024-05-03 19:42] LABS: Thyroid Stimulating Hormone < 0.015 uIU/mL (0.465-4.680)
== END 2024-05-03 08:00 | disposition home or self-care (01) ==
PROVIDERS: PCP Family Medicine; Visit Provider Family Medicine
DX: E03.9 Hypothyroidism, unspecified (principal); R94.5 Abnormal results of liver function studies
CPT/HCPCS: 36415; 80076; 84443

== ENCOUNTER 2024-08-09 08:04 | Outpatient (CLI) | payer OTHER, SELFPAY ==
[2024-08-09 15:06] LABS: Thyroid Stimulating Hormone 0.096 uIU/mL (0.465-4.680)
== END 2024-08-09 08:05 | disposition home or self-care (01) ==
LOC: ANHGOSHLAB 08:06
PROVIDERS: PCP Family Medicine; Visit Provider Family Medicine
DX: E03.9 Hypothyroidism, unspecified (principal)
CPT/HCPCS: 36415; 84443

== ENCOUNTER 2025-01-26 17:04 | Emergency (ER) | payer OTHER, SELFPAY ==
--- NOTE | ~2025-01-26 | CT_ITS ---
EXAMINATION: CT abdomen pelvis wo con DATE: 01/26/2025 17:54 INDICATION: Constipation, concern SBO TECHNIQUE: Computed tomography (CT) of the abdomen and pelvis was performed without intravenous contr ast. Automated exposure control and iterative reconstruction technique were employed. The dose-length product was 391.65 mGy-cm. COMPARISON: CT chest 03/28/2023. FINDINGS: Lower thorax: 5 mm pleural-based left lower lobe pulmonary nodule which was obscured in the prior derrick dy. Multiple additional sub-6 mm pulmonary nodules are also present which are stable. Liver: Normal. Biliary/Gallbladder: Cholelithiasis. No inflammatory changes. No bile duct dilation. Pancreas: No mass or duct dilation. Spleen: Normal. Adrenals:No mass. Kidneys: No suspicious mass, obstructing stone, or hydronephrosis. Parapelvic cyst on the left. GI tract: Small hiatal hernia. No small or large bowel dilation. Normal appendix. Scattered diverticu li. Mild wall thickening in the distal sigmoid, with mild surrounding inflammatory change and fluid. Mesentery/Peritoneum: No ascites, mass, or free air. Retroperitoneum: No mass. Atherosclerotic calcifications of intra-abdominal arterial vessels. Pelvis: Unremarkable urinary bladder. Absent uterus. The bilateral ovaries are not confidently identi fied.. Soft Tissues: Soft tissues and body wall unremarkable. Bones: No acute osseous finding. IMPRESSION: 5 mm pleural-based left lower lobe pulmonary nodule, obscured in the prior study. If the patient is a t low risk no follow-up is recommended. If the patient is at high risk consider an optional low-dose noncontrast CT of the chest in one year. Multiple additional smaller nodules are present which are stable, likely representing granulomatous d isease. Distal sigmoid colitis, likely on an infectious, inflammatory, or ischemic basis. Diverticulitis is n ot excluded, although a specific inflamed diverticulum is not identified. Reviewed, dictated and finalized at location K. IMPRESSION: 5 mm pleural-based left lower lobe pulmonary nodule, obscured in the prior stud y. If the patient is at low risk no follow-up is recommended. If the patient is at high risk consider an optional low-dose noncontrast CT of the chest in one year. Multiple additional smaller nodules are present which are stable, likely repres enting granulomatous disease. Distal sigmoid colitis, likely on an infectious, inflammatory, or ischemic basi s. Diverticulitis is not excluded, although a specific inflamed diverticulum is not identified.
--- OUTSIDE RECORDS SUMMARY | 2025-01-26 17:06 | XMS_ITS | Referral Summary ---
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 Active amLODIPine (NORVASC) 10 mg tablet Take 1 tablet (10 mg total) by mouth daily Active atorvastatin (LIPITOR) 20 mg tablet Take 1 tablet (20 mg total) by mouth daily Active FLUoxetine 10 mg tablet/capsule Take 1 tablet/capsule (10 mg total) by mouth daily Active pantoprazole DR (PROTONIX) 40 mg EC tablet Take 1 tablet (40 mg total) by mouth daily Active ondansetron (ZOFRAN) 4 mg tablet Take 1 tablet (4 mg total) by mouth every 8 (eight) hours as needed for nausea or vomiting Active multivitamin tabletIndicatio ns:Vitamin Deficiency Prevention Take 1 tablet by mouth Active psyllium, aspartame, SF (METAMUCIL SF) 3.4 gram packet Take 1 packet by mouth daily Active Social History Tobacco Use Types Packs/Day Years Used Date Smoking Tobacco: Former Cigarettes Q uit: 1982 Tobacco Cessation:Counseling Given: Not Answered Personal Safety Answer Date Recorded Getting School Help Needed Not on file 07/05 Comments Unknown Sex and Gender Information Value Date Recorded Sex Assigned at Not on file Legal Sex Female 12:40 PM CDT Gender Identity Female 04/26/2023 12:31 PM CDT Sexual Orientation Straight 04/26/2023 12 :31 PM CDT Last Filed Vital Signs Vital Sign Reading Time Taken Comments Blood Pressure 146/65 04/27/2023 7:39 AM CDT Pulse 76 04/27/2023 7:39 AM CDT Temperature - - Respiratory Rate 16 04/27/2023 7:39 AM CDT Oxygen Saturation - - Inhaled Oxygen Concentration - - Weight 72.6 kg (160 lb) 04/03/2023 12:50 PM CDT Height 160 cm (5' 3 ) 04/03/2023 12:50 PM CDT Body Mass Index 28.34 04/03/2023 12:50 PM CDT Plan of Treatment Not on file Insurance [facility] Care Teams Client Account Representative Relationship Specialty Start Date End Date Charlotte Lorenzo MD PCP - General Family Medicine 04/27/23
--- OUTSIDE RECORDS SUMMARY | 2025-01-26 17:07 | XMS_ITS | Clinical Summary ---
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 Active amLODIPine (NORVASC) 10 mg [...] Take 1 packet by mouth daily Active Surgical History Surgery Date Site/Laterality Comments UPPER GASTROINTESTINAL ENDOSCOPY TONSILLECTOMY AND ADENOIDECTOMY APPENDECTOMY TUBAL LIGATION HYSTERECTOMY Medical History Medical History Date Comments GERD (gastroesophageal reflux disease) Hypertension Hypothyroidism Glaucoma Social History Tobacco Use Types Packs/Day Years [...] Orientation Straight 04/26/2023 12 :31 PM CDT Obstetrics History Last Filed Vital Signs Vital Sign Reading [...] 04/03/2023 12:50 PM CDT Plan of Treatment Health Maintenance Due Date Last Done Comments Breast Cancer Screening-Mammogram 1957 Colon Cancer Screening-Colonoscopy 1957 Depression Screening 1957 Fall Risk Assessment 1957 Hepatitis C Screening 1957 Osteoporosis Screening-Bone Density Scan 1957 DTaP/Tdap/Td Vaccine (1 - Tdap) 02/07/1968 Hepatitis B Screening 1975 Pneumococcal vaccine 65+ (1 of 1 - PCV) 2007 Well Visit 65+ 2022 Zoster Vaccine (2 of 2) 06/09/2023 04/14/2023 Influenza Vaccine (#1) 2024 Insurance [facility] Care Teams Digital Imager Relationship Specialty Start Date End Date Charlotte Lorenzo MD PCP - General Family Medicine 04/27/23
--- OUTSIDE RECORDS SUMMARY | 2025-01-26 17:07 | XMS_ITS | Patient Health Record ---
Author Organization [facility] Address [address] [place] [address] Care Team Providers Care Label Fuser Tender Name Role Phone MD Taco Alvarez Primary Care Provider Clint Banks Unavailable [phone] Allergies No Known Allergies Reason For Referral No Information Medications Medication SIG (Take, Route, Frequency, Duration) Notes Start Date End Date Status amLODIPine Besylate 10 MG 1 tablet Orall y Once a day for 30 day(s) Active Levothyroxine Sodium 112 MCG 1 tablet in the morning on an empty stomach Orally Once a day for 30 day(s) Active Levothyroxine Sodium 100 MCG 1 tablet in the morning on an empty stomach Orally Once a day for 30 day(s) Active Ondansetron 4 MG 1 tablet on the tong ue and allow to dissolve Orally Once a day Active BuPROPion HBr Active Famotidine 20 MG 1 tablet at bedtime as needed Orally Once a day for 30 day(s) Active Atorvastatin Calcium 20 MG 1 tablet Oral ly Once a day for 30 day(s) Active Social History Tobacco Use: Social History Observation Description Date Details (start date - stop date) Former Smoker NA - NA Tobacco Use/Smoking Question Answer Notes Smoking Status former smoker Problems Problem Type SNOMED Code ICD Code Onset Dates Problem Status W/U Status Risk Notes Problem Chronic ulcerative pancolitis (269519517) Ulcerative (chronic) pancolitis without complications (K51.00) [address] [id number] Problem Gastritis (2369064) Gastritis (K29.70) Active confirmed Problem Duodenitis (32024557) Duodenitis without hemorrhage (K29.80) Active confirmed Plan Of Treatment Pending Test Test Name Order Date -EGD 10/25/2022 Insurance Providers Payer Name Payer Address Payer Phone Subscriber Number Group Number Insured Name Patient Relationship to Insured Coverage Start Date Coverage End Date [facility] [address] [place] [id number] [place] Self - patient is the insured Medical (General) History Medical History History ICD Code Glaucoma AppendectomyHysterectomyTubal L igation hiatal hernia gallstones hypertension hypothyroid gallstones high cholesterol Surgical History Surgery Date(Month/Year) COLONOSCOPY: 11/26/15 INDICAT ION: history of ulcerative colitis DX: mild diverticulosis, internal hemorrhoids, and mild rectal erythema. BX: colonic mucosa and focal and mild chronic proctitis with few small lymphoid aggregates SURVEILLANCE: 5 years
[2025-01-26 17:09] VITALS: BP 157/80; PULSE 87; RESP 16; TEMP 36.8; O2SAT 98
[2025-01-26 17:29] LABS: Basophils Absolute Auto 0.1 K/mm3 (0.0-0.1); Basophils Percent Auto 0.6 % (0.2-1.2); Eosinophils Absolute Auto 0.2 K/mm3 (0-0.3); Eosinophils Percent Auto 1.9 % (0-4.4); Hematocrit 46.6 % (37.0-47.0); Hemoglobin 15.3 g/dL (12.0-15.0); Immature Granulocyte Absolute 0.02 K/mm3 (0.00-0.031); Immature Granulocyte Percent A 0.2 % (0-0.5); Lymphocytes Absolute Auto 1.66 K/mm3 (0.9-3.2); Lymphocytes Percent Auto 16.9 % (18.3-44.2); Mean Corpuscular HGB Conc 32.8 g/dl (32-36); Mean Corpuscular Hemoglobin 29.1 pg (26-34); Mean Corpuscular Volume 88.8 fl (80-100); Mean Platelet Volume 10.3 fl (7.4-10.4); Monocytes Absolute Auto 0.6 K/mm3 (0.1-0.6); Monocytes Percent Auto 5.8 % (2.6-8.5); Neutrophils Absolute Auto 7.3 K/mm3 (1.3-6.7); Neutrophils Percent Auto 74.6 % (45.5-73.1); Platelet Count Result 310 k/mm3 (150-375); Red Blood Count 5.25 M/mm3 (4.2-5.4); Red Cell Distribution Width 12.7 % (11.5-14.5); White Blood Count 9.8 K/mm3 (4.5-10.0)
--- NOTE | 2025-01-26 17:34 | ED_ITS ---
HPI - General Adult General Chief complaint: Abdominal Pain Stated complaint: lower abd pain, CANT POOP AT ALL Time Seen by Provider: 01/26/25 17:09 History of Present Illness HPI narrative: 69-year-old female presents emergency department for evaluation for constipation. Patient reports he does have longstanding issues with constipation but symptoms began acutely worsening yesterday. Patient states she is passing mucus stool but has not passed any bowel movements. Patient reports she does increased rectal pressure. Patient did take a stool softener without effect. Patient does describe lower abdominal pain and increased rectal pressure. Patient does have prior history of tubal ligation, hysterectomy, appendectomy, hiatal hernia repair. Related Data Allergies Allergy/AdvReac Type Severity Reaction Status Date / Time apple Allergy Rash Verified 01/30/25 14:20 Iodinated Contrast Media AdvReac Mild Vomiting, Verified 01/30/25 14:20 NAUSEA Review of Systems 2 Review of Systems: All systems reviewed & are unremarkable except as noted in HPI and below PMFSH Past Medical History Medical History Abnormal liver function Encounter for surgical aftercare following surgery on the digestive system Former smoker quit age 22 Glaucoma Hiatal hernia UGI 7.3.23: Large sliding-type hiatal hernia with organoaxial volvulus. Gallbladder disorder Anxiety Surgical History Surgical History History of hernia repair Robotic assisted laparoscopic paraesophageal hernia repair with 270 degree fundoplication on 07/04/23 [facility] History of hysterectomy 1992 History of tubal ligation 1988 History of tonsillectomy 1957 History of appendectomy 1972 Family History Family History Father Alcoholism Cancer Daughter Alcoholism Mother Hypertension Cancer Grandparent Cerebrovascular accident Other Asthma Social History Social History Smoking packs per day: 0.5 Smoking cigarettes per day: 10.0 Years smoked: 4 Smoking pack-years: 2.00 Smoking status: Former smoker Alcohol intake: never Substance use: never Substance use type: does not use Do You Feel Safe in your Home?: Yes Lack of Transportation: No Lack of Food: Never True Current Housing: I Have Housing Concerned About Future Housing: No Difficulty Paying Gas/Electric Bills: No Difficulty Paying for Meds: No Currently Unemployed: No Education: Trade/Vocational Certificate Difficulty w/ Childcare or Family Care: No Living arrangements: with family Additional living arrangements comments: , SON, [id number] Occupation/Education: retired Spiritual care concerns: No Exam 2 Narrative: APPEARANCE: Well appearing, no pain, no distress, well-nourished. HEAD: normocephalic, atraumatic. EYES: PERRLA/EOMI, conjunctivae clear. NOSE: Normal no drainage EARS:TMS clear with good light reflex. THROAT: Pharynx clear, no exudate. NECK: Supple. No adenopathy, no masses. RESPIRATORY: Airway patent, respirations nonlabored. Clear to auscultation bilaterally, no rales, rhonchi, wheezing. CARDIOVASCULAR: Regular rate and rhythm without murmurs rubs or gallops. ABDOMINAL: Soft, nontender, nondistended, normal bowel sounds MUSCULOSKELETAL: Moves all extremities. Strength/ROM intact, No edema, No calf tenderness. NEURO: Alert. Cranial nerves II through XII intact. Grossly intact Rectal exam: Hemoccult negative with no large stool ball within the rectum. SKIN: Warm, dry. Normal Color Course Vital Signs Vital signs: Vital Signs Temperature 98.2 F 01/26/25 17:09 Pulse Rate 87 01/26/25 17:09 Respiratory Rate 16 01/26/25 17:09 Blood Pressure 157/80 H 01/26/25 17:09 Pulse Oximetry 98 01/26/25 17:09 Temperature 98.2 F 01/26/25 17:09 Pulse Rate 67 01/26/25 19:08 Respiratory Rate 14 01/26/25 19:08 Blood Pressure 148/82 H 01/26/25 19:08 Pulse Oximetry 100 01/26/25 19:08 Medical Decision Making MDM Narrative Medical decision making narrative: 69-year-old female present to the emergency department for evaluation for issues with constipation. CT scan was positive for diverticulitis. Patient was provided medications for pain control emergency department. No evidence of bowel obstruction. Patient was comfortable with plan for antibiotics and discharged home. Patient was advised to follow a clear liquid diet. Patient was also encouraged to have follow-up with GI. All questions concerns were addressed. Differential Diagnosis Differential Diagnosis: Small-bowel obstruction, constipation, colitis, diverticulitis Vital Signs Vital Signs: Vital Signs Temperature 98.2 F 01/26/25 17:09 Pulse Rate 87 01/26/25 17:09 Respiratory Rate 16 01/26/25 17:09 Blood Pressure 157/80 H 01/26/25 17:09 Pulse Oximetry 98 01/26/25 17:09 Temperature 98.2 F 01/26/25 17:09 Pulse Rate 67 01/26/25 19:08 Respiratory Rate 14 01/26/25 19:08 Blood Pressure 148/82 H 01/26/25 19:08 Pulse Oximetry 100 01/26/25 19:08 Lab Data Lab results reviewed: Yes I reviewed the patient's lab results. 01/26/25 17:23 01/26/25 17:23 Labs: Lab Results 01/26/25 Range/Units 17:23 WBC 9.8 (4.5-10.0) K/mm3 RBC 5.25 (4.2-5.4) M/mm3 Hgb 15.3 H (12.0-15.0) g/dL Hct 46.6 (37.0-47.0) % MCV 88.8 (80-100) fl MCH 29.1 (26-34) pg MCHC 32.8 (32-36) g/dl RDW 12.7 (11.5-14.5) % Plt Count 310 (150-375) k/mm3 MPV 10.3 (7.4-10.4) fl Immature Gran % (Auto) 0.2 (0-0.5) % Neut % (Auto) 74.6 H (45.5-73.1) % Lymph % (Auto) 16.9 L (18.3-44.2) % [place] % (Auto) 5.8 (2.6-8.5) % Eos % (Auto) 1.9 (0-4.4) % Baso % (Auto) 0.6 (0.2-1.2) % Lymph # (Auto) 1.66 (0.9-3.2) K/mm3 [place] # (Auto) 0.6 (0.1-0.6) K/mm3 Eos # (Auto) 0.2 (0-0.3) K/mm3 Baso # (Auto) 0.1 (0.0-0.1) K/mm3 Abs Immat Gran (auto) 0.02 (0.00-0.031) K/mm3 Absolute Neuts (auto) 7.3 H (1.3-6.7) K/mm3 Absolute Nucleated RBC 0.000 (0.0-0.012) K/mm3 Nucleated RBC % 0.0 (0.0-0.2) % Sodium 142 (137-145) mmol/L Potassium 4.3 (3.4-5.0) mmol/L Chloride 103 (98-107) mmol/L Carbon Dioxide 26 (22-30) mmol/L Anion Gap 13 H (4-12) mmol/L BUN 12 (7-17) mg/dL Creatinine 0.83 (0.7-1.0) mg/dL Estim Creat Clear Calc 55 ml/min Estimated GFR > 60 (59 - ) Glucose 100 (65-110) mg/dL Calcium 9.3 (8.4-10.2) mg/dL Total Bilirubin 0.6 (0.2-1.3) mg/dL AST 28 (14-36) U/L ALT 33 (6-35) U/L Alkaline Phosphatase 73 (38-126) U/L Total Protein 8.0 (6.3-8.2) g/dL Albumin 4.7 (3.5-5.1) g/dL Lipase 98 (23-300) U/L Urine Color Yellow (Yellow) Urine Appearance Clear (Clear) Urine pH 5.0 (5.0-9.0) Ur Specific [place] 1.023 (1.001-1.035) Urine Protein Negative (Negative) mg/dL Urine Glucose (UA) Negative (Negative) mg/dL Urine Ketones Trace H (Negative) mg/dL Ur Blood (Man) Negative (Negative) Urine Nitrate Negative (Negative) Urine Bilirubin Negative (Negative) Urine Urobilinogen 1.0 (<2.0) mg/dL Leukocyte Esterase Rfl Negative (Negative) IVÁN/UL Discharge Plan Discharge Clinical Impression: Colitis Patient Disposition: Home Condition: Stable Instructions: Antibiotic Form, Clear Liquid Diet (ED), Abdominal Pain (ED), Colitis (ED) Additional Instructions: Antibiotic as directed until completed. Clear liquid diet for the next 3-5 days. MiraLax as needed to help with constipation. Have close follow-up with GI. Have close follow-up with your primary care physician. If you have any worsening symptoms then please call or return to the emergency department. Patient Language: Nepali Prescriptions: New amoxicillin-pot clavulanate 875-125 mg tablet 1 tablet PO Q12H 7 Days Qty: 14 0RF No Action levothyroxine [Euthyrox] 75 mcg tablet 75 mcg PO DAILY Qty: 90 3RF amlodipine 10 mg tablet 10 mg PO HS Qty: 90 3RF atorvastatin 20 mg tablet 20 mg PO HS Qty: 90 3RF fluoxetine 10 mg capsule 10 mg PO HS Qty: 30 1RF latanoprost 0.005 % drops 1 drp EACH EYE HS Qty: 2.5 3RF Follow-up/Referrals: Charlotte Lorenzo MD [Primary Care Provider] - Raymundo Coto MD [Physician] -
[2025-01-26 17:39] LABS: Alanine Aminotransferase 33 U/L (6-35); Albumin Level 4.7 g/dL (3.5-5.1); Alkaline Phosphatase 73 U/L (38-126); Anion Gap 13 mmol/L (4-12); Aspartate Amino Transferase 28 U/L (14-36); Bilirubin,Total 0.6 mg/dL (0.2-1.3); Blood Urea Nitrogen 12 mg/dL (7-17); Calcium 9.3 mg/dL (8.4-10.2); Carbon Dioxide 26 mmol/L (22-30); Chloride 103 mmol/L (98-107); Estimated CRCL calculation 55 ml/min; Estimated Glomerular Filt Rate > 60; Glucose 100 mg/dL (65-110); Lipase 98 U/L (23-300); Potassium 4.3 mmol/L (3.4-5.0); Sodium 142 mmol/L (137-145)
--- OUTSIDE RECORDS SUMMARY | 2025-01-26 17:41 | XMS_ITS | Clinical Summary ---
Author Organization [facility] Address [address] [place] [address] Care Team Providers Care Ice Cream Freezer Helper Name Role Phone Charlotte Lorenzo MD Primary [...] 1 tablet (100 mcg total) by mouth director of early childhood education before breakfast Active amLODIPine (NORVASC) 10 mg [...] 06/09/2023 04/14/2023 Influenza Vaccine (#1) 2024 Insurance [facility] Care Teams Ice Cream Freezer Helper Relationship Specialty Start Date End Date Charlotte Lorenzo MD PCP - General Family Medicine 04/27/23
--- OUTSIDE RECORDS SUMMARY | 2025-01-26 17:41 | XMS_ITS | Referral Summary ---
Author Organization [facility] Address [address] [place] [address] Care Team Providers Care Film Drying Machine Operator Name Role Phone Charlotte Lorenzo MD Primary [...] 1 tablet (100 mcg total) by mouth instructional technology facilitator before breakfast Active amLODIPine (NORVASC) 10 mg [...] Plan of Treatment Not on file Insurance [facility] [facility] Care Teams Film Drying Machine Operator Relationship Specialty Start Date End Date Charlotte Lorenzo MD PCP - General Family Medicine 04/27/23
[2025-01-26 18:04] LABS: Add Urine Microscopic? NO; Appearance Urine Clear (Clear); Bilirubin Urine Negative (Negative); Blood Urine Negative (Negative); Color Urine Yellow (Yellow); Glucose Urine UA Negative (Negative); Ketones Urine Trace mg/dL (Negative); Leukocyte Esterase Ur Negative LEU/UL (Negative); Nitrate Urine Negative (Negative); Protein Urine Negative (Negative); Specific Grav Ur 1.023 (1.001-1.035)
[2025-01-26] MEDS: AMOXICILLIN/CLAVULANATE K 875-125 MG TAB 1 TABLET PO (19:05)
[2025-01-26 19:08] VITALS: BP 148/82; PULSE 67; RESP 14; O2SAT 100
== END 2025-01-26 19:07 | disposition home or self-care (01) ==
PROVIDERS: Physician Assistant; Emergency Provider Emergency Medicine; PCP Family Medicine
DX: K52.9 Noninfective gastroenteritis and colitis, unspecified (principal); H40.9 Unspecified glaucoma; Z87.891 Personal history of nicotine dependence; Z90.710 Acquired absence of both cervix and uterus; Z79.899 Other long term (current) drug therapy
CPT/HCPCS: 36415; 74176; 80053; 81003; 83690; 85025; 99284; A9270

== ENCOUNTER 2025-03-13 07:48 | Outpatient (CLI) | payer OTHER, SELFPAY ==
--- OUTSIDE RECORDS SUMMARY | 2025-03-13 07:51 | XMS_ITS | Clinical Summary ---
Author Organization [facility] Address [address] [place] [address] Care Team Providers Care Manager Unix Name Role Phone Charlotte Lorenzo MD Primary [...] 1 tablet (100 mcg total) by mouth collection manager before breakfast Active amLODIPine (NORVASC) 10 [...] 12:50 PM CDT Height 160 cm (5' 3) 04/03/2023 12:50 PM CDT Body Mass Index [...] (2 of 2) 06/09/2023 04/14/2023 Influenza Vaccine (Season Ended) 2025 Insurance [facility] Care Teams Manager Unix Relationship Specialty Start Date End Date Charlotte Lorenzo MD PCP - General Family Medicine 04/27/23
--- OUTSIDE RECORDS SUMMARY | 2025-03-13 07:51 | XMS_ITS | Referral Summary ---
Author Organization [facility] Address [address] [place] [address] Care Team Providers Care Fur Ironer Name Role Phone Charlotte Lorenzo MD Primary [...] 1 tablet (100 mcg total) by mouth supervisor rice milling before breakfast Active amLODIPine (NORVASC) 10 mg [...] Plan of Treatment Not on file Insurance [facility] Care Teams Fur Ironer Relationship Specialty Start Date End Date Charlotte Lorenzo MD PCP - General Family Medicine 04/27/23
--- OUTSIDE RECORDS SUMMARY | 2025-03-13 07:53 | XMS_ITS | Patient Health Record ---
Author Organization [facility] Address [address] [place] [address] Care Team Providers Care Patient Financial Counselor Name Role Phone MD Taco Alvarez Primary Care Provider Clint Banks Unavailable [phone] Allergies No Known Allergies Reason For Referral [...] Status Risk Notes Problem Chronic ulcerative pancolitis (717520634) Ulcerative (chronic) pancolitis without complications (K51.00) 6 Active confirmed [id number] 882- Problem Gastritis (3257816) Gastritis (K29.70) Active confirmed Problem Duodenitis without hemorrhage (K29.80) Active confirmed Plan Of Treatment Pending Test Test Name Order Date -EGD 10/25/2022 Insurance Providers Payer Name Payer Address Payer Phone Subscriber Number Group Number Insured Name Patient Relationship to Insured Coverage Start Date Coverage End Date [employer] [address] [place] [address] [phone] [id number] Art [place] Self - patient is the [...]
[2025-03-13 13:38] LABS: Alanine Aminotransferase 23 U/L (6-35); Albumin Level 4.2 g/dL (3.5-5.1); Alkaline Phosphatase 63 U/L (38-126); Anion Gap 8 mmol/L (4-12); Aspartate Amino Transferase 77 U/L (14-36); Bilirubin,Total 0.7 mg/dL (0.2-1.3); Blood Urea Nitrogen 13 mg/dL (7-17); Calcium 9.2 mg/dL (8.4-10.2); Carbon Dioxide 31 mmol/L (22-30); Chloride 103 mmol/L (98-107); Cholesterol 158 mg/dL (0-200); Estimated Glomerular Filt Rate > 60; Glucose 81 mg/dL (65-110); HDL Direct 43 mg/dL; LDL Cholesterol Direct 84 mg/dL; Sodium 142 mmol/L (137-145); Total Protein 7.1 g/dL (6.3-8.2); Triglycerides 76 mg/dL (<150)
== END 2025-03-13 07:49 | disposition home or self-care (01) ==
PROVIDERS: PCP Family Medicine; Visit Provider Family Medicine
DX: E03.9 Hypothyroidism, unspecified (principal); E78.2 Mixed hyperlipidemia
CPT/HCPCS: 36415; 80053; 80061; 84443

== ENCOUNTER 2025-04-09 07:59 | Outpatient (CLI) | payer OTHER, SELFPAY ==
--- NOTE | ~2025-04-09 | MM_ITS ---
EXAMINATION: MM screening zoraida BI w trung HISTORY: Screening mammogram TECHNIQUE: Craniocaudal and mediolateral oblique 3-D tomosynthesis images were obtained and synthetic 2-D images were generated. CAD analysis was submitted and interpreted. COMPARISON: No prior mammogram is available for comparison at this institution. BREAST PARENCHYMAL COMPOSITION:Not Dense. The breasts are almost entirely fatty FINDINGS: No suspicious mass, calcification, or architectural distortion are identified in either whit ast to suggest malignancy. There has been no suspicious interval change. IMPRESSION: No mammographic evidence of malignancy. Recommend routine screening mammography in one year. BI-RADS Category 1: Negative Reviewed, dictated and finalized at location .
--- OUTSIDE RECORDS SUMMARY | 2025-04-09 08:04 | XMS_ITS | Patient Health Record ---
Author Organization [facility] Address [address] [place] [address] Care Team Providers Care Automotive Power Electronics Engineer Name Role Phone MD Taco Alvarez Primary Care Provider Clint Banks Unavailable [phone] Allergies No Known Allergies Reason For Referral [...] Problem Status W/U Status Risk Notes Problem Gastritis (2505895) Gastritis (K29.70) Active confirmed Problem Duodenitis (56059150) Duodenitis without hemorrhage (K29.80) Active confirmed Problem Chronic ulcerative pancolitis (593022137) Ulcerative (chronic) pancolitis without complications (K51.00) 6 Active confirmed [id number] 882- Plan Of Treatment Pending Test Test Name Order Date -EGD 10/25/2022 Insurance Providers Payer Name Payer Address Payer Phone Subscriber Number Group Number Insured Name Patient Relationship to Insured Coverage Start Date Coverage End Date [employer] [address] [place] [id number] Art York Self - patient is the [...]
--- OUTSIDE RECORDS SUMMARY | 2025-04-09 08:04 | XMS_ITS | Clinical Summary ---
Author Organization [facility] Address [address] [place] [address] Care Team Providers Care Callisthenics Instructor Name Role Phone Charlotte Lorenzo MD Primary [...] 1 tablet (100 mcg total) by mouth chest painting and sealing supervisor before breakfast Active amLODIPine (NORVASC) 10 mg [...] 04/14/2023 Influenza Vaccine (Season Ended) 2025 Insurance [facility] Care Teams Callisthenics Instructor Relationship Specialty Start Date End Date Charlotte Lorenzo MD PCP - General Family Medicine 04/27/23
--- OUTSIDE RECORDS SUMMARY | 2025-04-09 08:04 | XMS_ITS | Referral Summary ---
Author Organization [facility] Address [address] [place] [address] Care Team Providers Care Patch Washer Name Role Phone Charlotte Lorenzo MD Primary [...] 1 tablet (100 mcg total) by mouth early childhood teacher before breakfast Active amLODIPine (NORVASC) 10 mg [...] Plan of Treatment Not on file Insurance [facility] [place] [facility] [place] Care Teams Patch Washer Relationship Specialty Start Date End Date Charlotte Lorenzo MD PCP - General Family Medicine 04/27/23
== END 2025-04-09 08:00 | disposition home or self-care (01) ==
LOC: ANHIMG 08:01
PROVIDERS: PCP Family Medicine; Visit Provider Student in an Organized Health Care Education/Training Program
DX: Z12.31 Encounter for screening mammogram for malignant neoplasm of breast (principal)
CPT/HCPCS: 77063; 77067

== ENCOUNTER 2025-04-28 10:29 | Outpatient (CLI) | payer OTHER, SELFPAY ==
--- OUTSIDE RECORDS SUMMARY | 2025-04-28 10:42 | XMS_ITS | Referral Summary ---
Author Organization [facility] Address [address] [place] [address] Care Team Providers Care Manager Gift Name Role Phone Charlotte Lorenzo MD Primary [...] 1 tablet (100 mcg total) by mouth lay out former before breakfast Active amLODIPine (NORVASC) 10 mg [...] of Treatment Not on file Insurance [facility] Care Teams Manager Gift Relationship Specialty Start Date End Date Charlotte Lorenzo MD PCP - General Family Medicine 04/27/23
--- OUTSIDE RECORDS SUMMARY | 2025-04-28 10:42 | XMS_ITS | Clinical Summary ---
Author Organization [facility] Address [address] [place] [address] Care Team Providers Care Director Employee Communications Name Role Phone Charlotte Lroenzo MD Primary Care Provider + Allergies Active [...] 1 tablet (100 mcg total) by mouth community relations manager before breakfast Active amLODIPine (NORVASC) 10 [...] 04/14/2023 Influenza Vaccine (Season Ended) [address] [facility] Care Teams Director Employee Communications Relationship Specialty Start Date End Date Charlotte Lorenzo MD PCP - General Family Medicine 04/27/23
--- OUTSIDE RECORDS SUMMARY | 2025-04-28 10:43 | XMS_ITS | Patient Health Record ---
Author Organization [facility] Address [address] [place] [address] Care Team Providers Care Integration Technician Name Role Phone MD Taco Alvarez Primary Care Provider Clint Banks Unavailable [phone] Allergies No Known Allergies Reason For Referral [...] Status W/U Status Risk Notes Problem Gastritis (9402249) Gastritis (K29.70) Active confirmed Problem Duodenitis (64910088) Duodenitis without hemorrhage (K29.80) Active confirmed Problem Ulcerative (chronic) pancolitis without complications (K51.00) 6 Active confirmed [facility][id number] 882- Plan Of Treatment Pending Test Test Name Order Date -EGD 10/25/2022 Insurance Providers Payer Name Payer Address Payer Phone Subscriber Number Group Number Insured Name Patient Relationship to Insured Coverage Start Date Coverage End Date [employer] [address] [place] [address] [phone] [id number] Art [place] Self - patient is the [...]
[2025-04-28 13:44] LABS: Alanine Aminotransferase 21 U/L (6-35); Albumin Level 4.2 g/dL (3.5-5.1); Alkaline Phosphatase 47 U/L (38-126); Aspartate Amino Transferase 59 U/L (14-36); Bilirubin,Total 0.7 mg/dL (0.2-1.3); Total Protein 7.1 g/dL (6.3-8.2)
[2025-04-28 14:11] LABS: Thyroid Stimulating Hormone 3.630 uIU/mL (0.465-4.680)
[2025-04-28 14:20] LABS: Hepatitis B Surface Antigen Negative (Negative)
[2025-04-28 14:26] LABS: HAV RESULT Negative (Negative); Hepatitis B Core IgM Result Negative (Negative)
== END 2025-04-28 10:30 | disposition home or self-care (01) ==
LOC: ANHGOSHLAB 10:30
PROVIDERS: PCP Family Medicine; Visit Provider Family Medicine
DX: R94.5 Abnormal results of liver function studies (principal); E03.9 Hypothyroidism, unspecified
CPT/HCPCS: 36415; 80074; 80076; 84443

== ENCOUNTER 2025-05-12 17:41 | Emergency (ER) | payer OTHER, SELFPAY ==
--- NOTE | ~2025-05-12 | XR_ITS ---
HISTORY: fall , bruising COMPARISON: None TECHNIQUE: 3 views of the left knee were performed FINDINGS: No acute or subacute fracture. Medial and lateral tibiofemoral joint space narrowing is identified. Patella baja is identified. Moderate suprapatellar joint effusion is identified. The infrapatellar joint space is clear. IMPRESSION: Patella baja (low in position in relation to the knee joint). Moderate suprapatellar joint effusion. No acute fracture. Reviewed, dictated and finalized at location A.
--- NOTE | ~2025-05-12 | XR_ITS ---
HISTORY: fall, swelling, pain COMPARISON: None TECHNIQUE: 3 views of the right knee were performed FINDINGS: Acute comminuted displaced fracture of the lower third of the patella is identified. Medial and lateral tibiofemoral joint space narrowing with sclerosis is identified. A large, dense suprapatellar joint effusion is identified. Infrapatellar joint space also demonstrates effusion. IMPRESSION: Complex acute comminuted displaced fracture of the patella with supra and infrapatellar joint effusions. Reviewed, dictated and finalized at location A. IMPRESSION: Complex acute comminuted displaced fracture of the patella with buck pra and infrapatellar joint effusions.
--- OUTSIDE RECORDS SUMMARY | 2025-05-12 17:43 | XMS_ITS | Clinical Summary ---
Author Organization [facility] Address [address] [place] [address] Care Team Providers Care Sewing Techniques Demonstrator Name Role Phone Charlotte Lorenzo MD Primary [...] 1 tablet (100 mcg total) by mouth product merchandiser before breakfast Active amLODIPine (NORVASC) 10 mg [...] of 2) 06/09/2023 04/14/2023 Influenza Vaccine (#1) 2025 Insurance [facility] Care Teams Sewing Techniques Demonstrator Relationship Specialty Start Date End Date Charlotte Lorenzo MD PCP - General Family Medicine 04/27/23
--- OUTSIDE RECORDS SUMMARY | 2025-05-12 17:43 | XMS_ITS | Referral Summary ---
Author Organization [facility] Address [address] [place] [address] Care Team Providers Care Cyber Ops Planner Name Role Phone Charlotte Lorenzo MD Primary [...] 1 tablet (100 mcg total) by mouth children counselor before breakfast Active amLODIPine (NORVASC) 10 mg [...] Plan of Treatment Not on file Insurance [facility] Care Teams Cyber Ops Planner Relationship Specialty Start Date End Date Charlotte Lorenzo MD PCP - General Family Medicine 04/27/23
--- OUTSIDE RECORDS SUMMARY | 2025-05-12 17:43 | XMS_ITS | Patient Health Record ---
Author Organization [facility] Address [address] [place] [address] Care Team Providers Care Medical Transcription Radiology Name Role Phone MD Taco Alvarez Primary Care Provider Clint Banks Unavailable [phone] Allergies No Known Allergies Reason For Referral No Information Medications Medication SIG (Take, Route, Frequency, Duration) Notes Start Date End Date Status amLODIPine Besylate 10 MG 1 tablet Orall y Once a day; Duration: 30 day(s) Active Levothyroxine Sodium 112 MCG 1 tablet in the morning on an empty stomach Orally Once a day; Duration: 30 day(s) Active Levothyroxine Sodium 100 MCG 1 tablet in the morning on an empty stomach Orally Once a day; Duration: 30 day(s) Active Ondansetron 4 MG 1 tablet on the tong ue and allow to dissolve Orally Once a day Active BuPROPion HBr Active Famotidine 20 MG 1 tablet at bedtime as needed Orally Once a day; Duration: 30 day(s) Active Atorvastatin Calcium 20 MG 1 tablet Oral ly Once a day; Duration: 30 day(s) Active Social History Tobacco Use: Social History Observation Description Date Details (start date - stop date) Former Smoker NA - NA Tobacco Use/Smoking Question Answer Notes Smoking Status former smoker Problems Problem Type SNOMED Code ICD Code Onset Dates Problem Status W/U Status Risk Notes Problem Gastritis (0511896) Gastritis (K29.70) Active confirmed Problem Duodenitis without hemorrhage (K29.80) Active confirmed Problem Chronic ulcerative pancolitis (775169175) Ulcerative (chronic) pancolitis without complications (K51.00) 6 Active confirmed [id number] 882- Plan Of Treatment Pending Test Test Name Order Date -EGD 10/25/2022 Insurance Providers Payer Name Payer Address Payer Phone Subscriber Number Group Number Insured Name Patient Relationship to Insured Coverage Start Date Coverage End Date [employer] [address] [place] [id number] Art [place] Self - patient is the [...]
[2025-05-12 18:40] VITALS: BP 148/76; PULSE 69; RESP 16; TEMP 36.7; O2SAT 100
--- NOTE | 2025-05-12 18:47 | ED_ITS ---
HPI - Fall General Chief Complaint: Fall <Du Reynoso APRN - Last Filed: 05/12/25 18:53> Stated Complaint: GLF, BL knee pain R one is worse <Du Reynoso APRN - Last Filed: 05/12/25 18:53> Time Seen by Provider: 05/12/25 19:49 <Du Reynoso APRN - Last Filed: 05/12/25 18:53> 70-year-old female presents to the ER complaining of fall approximately 2 hours ago. Patient says she is trying to dodge a full when she did she fell on her knees and hands. Patient complaining of bilateral knee pain, her right knee is worse than her left. Patient reports pain and swelling to her right knee and abrasion to her knee. Patient also reports mild bruising to her left knee with an abrasion. Patient is unable to bear weight to her right leg due to the pain. Patient denies any in her head, loss consciousness, neck pain, back pain every other injuries. Patient is not take any blood thinners Focused HPI: GENERAL: Well-appearing, well-nourished, and in no acute distress. HEAD: Normocephalic, atraumatic. CHEST: Clear to auscultation. ?No respiratory distress. HEART: Regular rate and rhythm.? NEURO: ?Alert and oriented x3. MSK: Left knee: Mild bruising to superior lateral knee. Abrasion present to patella. No obvious deformity, swelling or redness. No tenderness to palpation. Nontender through full range of motion. No valgus or varus laxity. Neurovascular status intact distal to the injury. Capillary refill less than 2 seconds. Right knee: no obvious deformity or bruising. There is moderate swelling to the patient's right knee. It is tender throughout. Neurovascular is intact distal to injury. Unable to perform valgus or varus stress due to pain. Range of motion limited due to pain. Capillary refill less than 2 seconds. Patient screened in triage and initial orders placed.? ?Additional care and disposition to be based upon?diagnostic testing and treatment. <Du Reynoso APRN - Last Filed: 05/12/25 18:53> History of Present Illness HPI Narrative: Agree with the above with the following additions/corrections: Denies any previous surgeries of the nearly or having to see orthopedic. Patient notes that she will occasionally experience a muscle spasm in this knee since the injury. She has ecchymosis at the left distal forearm but denies there being any pain or numbness/tingling. She did not feel or hear a pop when she fell. The pain in her right knee is overlying the patella but also along the lateral aspect of the joint line and towards the inferior knee joint. Patient does have 1 step into her house but denies any flights of stairs. She denies striking her head. No loss of consciousness and not on anticoagulation. States her pain is okay if she is just lying there but worse when she attempts to apply pressure. <Lolly West MD - Last Filed: 05/12/25 21:20> Related Data Home Medications: Home Medications ?Medication ?Instructions ?Recorded ?Confirmed ?Last Taken ?Type calcium carbonate 600 mg PO DAILY 03/14/25 Unknown History vitamin D3 125 mcg (5,000 2 cap PO DAILY 03/14/25 Unknown History unit)-vitamin K2 90 mcg capsule <Du Reynoso APRN - Last Filed: 05/12/25 18:53> Allergies/Adverse Reactions: Allergies Allergy/AdvReac Type Severity Reaction Status Date / Time apple Allergy Rash Verified 05/12/25 18:44 Iodinated Contrast Media AdvReac Mild Vomiting, Verified 05/12/25 18:44 NAUSEA <Du Reynoso APRN - Last Filed: 05/12/25 18:53> FOR[facility]LY [facility] Past Medical History Medical History: Medical History Abnormal liver function Former smoker quit age 22 Glaucoma Hiatal hernia UGI 7.3.23: Large sliding-type hiatal hernia with organoaxial volvulus. Gallbladder disorder Anxiety <Du Reynoso APRN - Last Filed: 05/12/25 18:53> Surgical History Surgical History: Surgical History History of hernia repair Robotic assisted laparoscopic paraesophageal hernia repair with 270 degree fundoplication on 07/04/23 W History of hysterectomy 1992 History of tubal ligation 1988 History of tonsillectomy 1957 History of appendectomy 1972 <Du Reynoso, QUALITY SYSTEMS ENGINEER - Last Filed: 05/12/25 18:53> Family History Family History: Family History Father Alcoholism Cancer Daughter Alcoholism Mother Hypertension Cancer Grandparent Cerebrovascular accident Other Asthma <Du DSanket McguireDAVID maldonadoN - Last Filed: 05/12/25 18:53> Social History Social History: Social History Smoking packs per day: 0.5 Smoking cigarettes per day: 10.0 Years smoked: 4 Smoking pack-years: 2.00 Smoking status: Former smoker Alcohol intake: never Substance use: never Substance use type: does not use Do You Feel Safe in your Home?: Yes Lack of Transportation: No Lack of Food: Never True Current Housing: I Have Housing Concerned About Future Housing: No Difficulty Paying Gas/Electric Bills: No Difficulty Paying for Meds: No Currently Unemployed: No Education: Trade/Vocational Certificate Difficulty w/ Childcare or Family Care: No Living arrangements: with family Additional living arrangements comments: , SON, [id number] Occupation/Education: retired Spiritual care concerns: No <Du D. Maynorerica, QUALITY SYSTEMS ENGINEER - Last Filed: 05/12/25 18:53> Exam Narrative: GENERAL: Well-appearing, well-nourished, and in no acute distress. HEAD: Normocephalic, atraumatic. EYES: Non injected, non icteric ENT: Nares clear, no rhinorrhea or epistaxis. Gross auditory acuity intact. NECK: Supple. No meningismus. CHEST: Speaking in full sentences. No respiratory distress. HEART: Regular rate and rhythm. Bilateral radial pulses intact. ABDOMEN: Soft, nondistended. EXTREMITIES: Patient able to demonstrate flexion/extension of bilateral wrists and full ROM of hands/fingers. Left knee mild effusion. No TTP throughout joint. 5/5 strength left leg ankle dorsiflexion plantar flexion, knee flexion extension, and hip flexion/abduction adduction. Notably, patient is able to take her left leg and show 180? extension. Right ankle 5/5 strength dorsiflexion and plantarflexion, 5/5 R knee flexion, patient has pain with R knee extension but is able to do so to approximately 30 degrees, engaging extensor mechanism. 5/5 strength R hip flexion/abduction/adduction. Patient has a large effusion of the right knee joint. She has tenderness to palpation of the right patella and to a lesser extent overlying the lateral aspect of the knee joint. With palpation inferior to the knee she notes that she experiences pain superior to the knee. No tenderness to palpation of tibial tuberosity. SKIN: Warm, dry. Area of ecchymosis at distal anterior aspect of L forearm. Very superficial abrasion knee. NEURO: No focal deficits. Alert and oriented. Answering questions. Following commands. Normal speech without aphasia or dysarthria. Sensation intact throughout hands and wrists. Sensation intact throughout to gross touch throughout bilateral lower extremities. PSYCH: Normal mood and affect. <Lolly West MD - Last Filed: 05/12/25 21:20> Course Vital Signs Vital signs: Vital Signs Temperature 98.1 F 05/12/25 18:40 Pulse Rate 69 05/12/25 18:40 Respiratory Rate 16 05/12/25 18:40 Blood Pressure 148/76 H 05/12/25 18:40 Pulse Oximetry 100 05/12/25 18:40 Oxygen Delivery Room Air 05/12/25 18:40 Temperature 98.1 F 05/12/25 18:40 Pulse Rate 69 05/12/25 18:40 Respiratory Rate 16 05/12/25 18:40 Blood Pressure 148/76 H 05/12/25 18:40 Pulse Oximetry 100 05/12/25 18:40 Oxygen Delivery Room Air 05/12/25 18:40 <Du Reynoso APRN - Last Filed: 05/12/25 18:53> Vital Signs Temperature 98.1 F 05/12/25 18:40 Pulse Rate 69 05/12/25 18:40 Respiratory Rate 16 05/12/25 18:40 Blood Pressure 148/76 H 05/12/25 18:40 Pulse Oximetry 100 05/12/25 18:40 Oxygen Delivery Room Air 05/12/25 18:40 Temperature 98.1 F 05/12/25 18:40 Pulse Rate 69 05/12/25 18:40 Respiratory Rate 16 05/12/25 18:40 Blood Pressure 148/76 H 05/12/25 18:40 Pulse Oximetry 100 05/12/25 18:40 Oxygen Delivery Room Air 05/12/25 18:40 <Lolly West MD - Last Filed: 05/12/25 21:20> MDM - Fall MDM Narrative Medical decision making narrative: Patient presents after she was attempting not to fall but did accidentally fall landing on her knees and bilateral outstretched wrist/palms. She notes that her pain is primarily in her bilateral knees although right greater than left. In the emergency department she is afebrile vital signs notable for mild hypertension. Patient is neurovascularly intact although has limitations with full range of motion on the right. She is able to engage extensor mechanism without for range of motion, I suspect secondary to pain. Based on the findings of x-ray, I did discuss with Dr. Begum, especially given the impression of the left knee on plain film imaging although patient is neurovascularly intact with full range of motion and strength in this left extremity. Concurs with management of knee immobilizer, weight-bearing, and pain management advises to follow-up in office, call for appointment. I did discuss the findings of patient's images with her and showed her them on the screen in room. She verifies understanding and is in agreement with the plan. Otherwise stable for discharge. <Lolly West MD - Last Filed: 05/12/25 21:20> Differential Diagnosis Differential diagnosis: Likely other (Acute internal derangement of knee including fracture/dislocation/subluxation, ligamentous injury, meniscal injury, tendon injury) <Lolly West MD - Last Filed: 05/12/25 21:20> Imaging Data Attestation: I personally reviewed and interpreted this imaging study as follows: <Lolly West MD - Last Filed: 05/12/25 21:20> My impression: Patellar fracture on the right which is displaced although only minimally, approximately 1mm posteriorly and a few mm anteriorly <Lolly West MD - Last Filed: 05/12/25 21:20> Radiologist's impression: Impressions Knee X-Ray 05/12/25 20:25 IMPRESSION: Patella baja (low in position in relation to the knee joint). Moderate suprapatellar joint effusion. No acute fracture. Knee X-Ray 05/12/25 20:28 IMPRESSION: Complex acute comminuted displaced fracture of the patella with supra and infrapatellar joint effusions. <Lolly West MD - Last Filed: 05/12/25 21:20> Discharge Plan Discharge Clinical Impression: Fall, Effusion of knee joint, left, Displaced comminuted fracture of right patella, initial encounter for closed fracture Traumatic ecchymosis of left wrist Qualifiers: Encounter type: initial encounter Qualified Code(s): S60.212A - Contusion of left wrist, initial encounter <Du Reynoso APRN - Last Filed: 05/12/25 18:53> Patient Disposition: Home <Du Reynoso APRN - Last Filed: 05/12/25 18:53> Condition: Stable <Du Reynoso APRN - Last Filed: 05/12/25 18:53> Instructions: Antibiotic Form, Narcotic Safety (ED), Patellar Fracture (ED), Swollen Knee Joint (ED), Fall Prevention (ED), Knee Immobilizer (ED), Ecchymosis (ED) <Du Reynoso APRN - Last Filed: 05/12/25 18:53> Additional Instructions: You are to keep the knee immobilizer in place and are allowed to fully bear weight. Multimodal pain management is to balance some rest with managing/improving your pain to a degree that allows you to maintaining staying active and keeping the leg moving occasionally. Call Dr Begum's office trung june to make a follow up appointment for evaluation. Acetaminophen/Tylenol (maximum 4000 mg per day) is safe to take with NSAIDs (ibuprofen/Motrin) for pain relief. For breakthrough pain, course of opiate/narcotic medications has been prescribed. If you are taking this medication, you are prone to constipation so include a stool softener, also prescribed. Return to the emergency department any new or worsening symptoms. <Du Reynoso APRN - Last Filed: 05/12/25 18:53> Patient Language: Slovak <Du Reynoso APRN - Last Filed: 05/12/25 18:53> Prescriptions: New ibuprofen 600 mg tablet 600 mg PO TID PRN (Reason: pain) Qty: 30 0RF acetaminophen 500 mg capsule 1,000 mg PO Q6H PRN (Reason: pain) Qty: 30 0RF oxycodone 5 mg tablet 5 mg PO Q8H PRN (Reason: pain) 7 Days Qty: 21 0RF polyethylene glycol 3350 [Miralax] 17 gram/dose powder 17 g PO DAILY PRN (Reason: constipation) Qty: 119 0RF No Action levothyroxine [Euthyrox] 75 mcg tablet 75 mcg PO DAILY Qty: 90 3RF amlodipine 10 mg tablet 10 mg PO HS Qty: 90 3RF atorvastatin 20 mg tablet 20 mg PO HS Qty: 90 3RF latanoprost 0.005 % drops 1 drp EACH EYE HS Qty: 2.5 3RF calcium carbonate 600 mg calcium (1,500 mg) tablet 600 mg PO DAILY vitamin D3-vitamin K2 125-90 mcg capsule 2 cap PO DAILY Rx Instructions: Zinc, Vitamin C, B12, [place] 3 fluoxetine 10 mg capsule 10 mg PO HS Qty: 30 5RF <Du Reynoso APRN - Last Filed: 05/12/25 18:53> Follow-up/Referrals: Ryan Begum MD [Physician] - (orthopedics) Charlotte Lorenzo MD [Primary Care Provider] - <Du Reynoso APRN - Last Filed: 05/12/25 18:53> Stand Alone Forms: Work/School Release IP <Du Reynoso APRN - Last Filed: 05/12/25 18:53> Time of Disposition: 21:11 <Du Reynoso APRN - Last Filed: 05/12/25 18:53> 21:11 <oLlly West MD - Last Filed: 05/12/25 21:20>
--- OUTSIDE RECORDS SUMMARY | 2025-05-12 20:42 | XMS_ITS | Referral Summary ---
Author Organization [facility] Address [address] [place] [address] Care Team Providers Care Emergency Room Clinician Name Role Phone Charlotte Lorenzo MD Primary [...] 1 tablet (100 mcg total) by mouth nurseryperson before breakfast Active amLODIPine (NORVASC) 10 mg [...] Plan of Treatment Not on file Insurance [employer] Care Teams Emergency Room Clinician Relationship Specialty Start Date End Date Charlotte Lorenzo MD PCP - General Family Medicine 04/27/23
--- OUTSIDE RECORDS SUMMARY | 2025-05-12 20:42 | XMS_ITS | Clinical Summary ---
Author Organization [facility] Address [address] [place] [address] Care Team Providers Care Principal Java Software Engineer Name Role Phone Charlotte Lorenzo MD Primary [...] 1 tablet (100 mcg total) by mouth animal control supervisor before breakfast Active amLODIPine (NORVASC) 10 [...] 06/09/2023 04/14/2023 Influenza Vaccine (#1) [address] [facility] Care Teams Principal Java Software Engineer Relationship Specialty Start Date End Date Charlotte Lorenzo MD PCP - General Family Medicine 04/27/23
[2025-05-12] MEDS: HYDROcodone/acetaminophen (*CRX) 5-325 MG TABLET 1 TAB PO (20:53)
[2025-05-12 21:34] VITALS: BP 140/70; PULSE 74; RESP 18; TEMP 36.6; O2SAT 100
== END 2025-05-12 21:34 | disposition home or self-care (01) ==
PROVIDERS: Emergency Provider Student in an Organized Health Care Education/Training Program; PCP Family Medicine
DX: S82.041A Displaced comminuted fracture of right patella, initial encounter for closed fracture (principal); S60.212A Contusion of left wrist, initial encounter; M25.462 Effusion, left knee; F41.9 Anxiety disorder, unspecified; W01.0XXA Fall on same level from slipping, tripping and stumbling without subsequent striking against object, initial encounter
CPT/HCPCS: 73562; 99284; A9270

== ENCOUNTER 2025-09-03 09:30 | Outpatient (RCR) | payer OTHER, SELFPAY ==
--- NOTE | 2025-06-24 14:03 | OPREHPOC ---
Outpatient Therapy Plan of Care This is a Multidisciplinary Plan of Care that may contain components documented by all disciplines (PT, OT, and ST.) PT Problem 1 PT Problem #1 Knowledge Deficit PT Goal 1 Goal / Goal Update Patient to demonstrate independence with HEP for improved self-reliance of symptom management. Target Visit 6 PT Problem 2 PT Problem #2 Pain PT Goal 1 Goal / Goal Update 1. Patient to decrease subjective reports of pain to <2/10 for 2 consecutive weeks for improved ADL tolerance. 2. Patient to report 50% improvement in quantity and quality of sleep due to pain. Target Visit 12 PT Problem 3 PT Problem #3 Impaired Range of Motion PT Goal 1 Goal / Goal Update Patient to demonstrate an increase of R knee AROM of 0-130 deg to improve mobility required for gait /stair negotiation. Target Visit 12 PT Problem 4 PT Problem #4 Impaired Strength PT Goal 1 Goal / Goal Update Patient to demonstrate R knee strength >=5/5 for improved functional stability required for ADLs. Target Visit 12 PT Problem 5 PT Problem #5 Impaired Functional Mobility PT Goal 1 Goal / Goal Update 1. Patient to improve confidence and understanding of gait mechanics and stair negotiation with SC to improve community navigation. 2. Patient to improve distance ambulated during 2MWT from 275 to 450 to demonstrate an improvement in ADL endurance. Target Visit 12
--- NOTE | 2025-06-24 14:04 | PTOPEVAL1 ---
Assessment and note entered by Nicole Low, PT Evaluation Information Assessment Status Evaluation ICD-10 Condition Codes (PT) Pain in right knee M25.561 Onset 05/12/25 Subjective Information Primary Complaint: R Knee Pain History of current condition: Pt reports symptoms started on 05/12/25 when she fell and fractured her R knee cap. She was in an immobilizer for 6 weeks and needed to use a walker to help off weight her leg. She is WBAT with her brace open from 0-90 deg and using the walker. She can stand without a device if she has furniture or her countertop to hang on to. previously no AD prior to injury. She has 4 stairs to enter her home one way and a full set on the opposite side of her home. She is sleeping on the couch because her bed is too high. She has not been doing any stairs per the ED. 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 Pt demonstrates JARRED LE weakness with greatest deficit of the involved R knee, R knee pain worse with weight bearing, decreased mobility, decreased endurance, gait deficit, and decreased flexibility that limit their ability to perform ADLs. Pt will benefit from skilled physical therapy to address the above listed deficits and return to PLOF. HEP instructed and written handout provided, EX tolerated well with no adverse effects to note post-session. Pt was educated on importance of adherence to HEP. Pt was also educated on anatomy, prognosis, home modalities, and PT POC. Plan of Care Interventions Aquatic Therapy,Electrical Stimulation,Gait Training,Hot Pack/Cold Pack,Intermittent Compression Pump,Manual Therapy,Neuro Re-education ,Patient/Caregiver Education,Therapeutic Activities,Therapeutic Exercise,Self-Care/Home Management,Ultrasound PT Services Indicated Yes Treatment Frequency and 2x/wk for 12 sessions Duration These treatments will address the objective and functional deficits as defined above. The patient will be advanced safely and appropriately in order for the patient to progress towards his/her prior level of function. Additional exercises will be introduced and as well as a comprehensive home exercise program upon discharge, if needed, ?to ensure carryover of functional gains achieved in the clinic. This treatment plan has been reviewed and agreement upon by the patient.
--- NOTE | 2025-07-31 11:01 | PTOPPROG ---
Assessment and note entered by Carlo Dunne PT Evaluation Information Assessment Status Progress ICD-10 Condition Codes (PT) Pain in right knee M25.561 Onset 05/12/25 Subjective Information Pt states she feels 50% recovered overall. She states there has been improvements in her strength , balance and mobility. She states she has been walking more overall and gets some muscle soreness after. She no longer uses a walker and strictly uses a cane or no device. Pt reports she sees ortho on Aug 18 now and will get an update on if she can stop wearing or adjust her brace. Assessment PT Clinical Summary Patient's R knee has improved overall as evidenced by advancements in symptoms, mobility, strength, and overall functional use of the extremity. However, some limitations are still present. Pt sees orthopedic MD on Aug 18 to discuss if the brace is still needed and will require additional physical therapy to restore ROM and strength. Patient would benefit from continued skilled physical therapy services to address the above listed impairments and facilitate a return to their prior level of function. Plan of Care Interventions Aquatic Therapy,Electrical Stimulation,Gait Training,Hot Pack/Cold Pack,Intermittent Compression Pump,Manual Therapy,Neuro Re-education ,Patient/Caregiver Education,Therapeutic Activities,Therapeutic Exercise,Self-Care/Home Management,Ultrasound PT Services Indicated Yes Treatment Frequency and 1-2x week for 10 visits Duration These treatments will address the objective and functional deficits as defined above. The patient will be advanced safely and appropriately in order for the patient to progress towards his/her prior level of function. Additional exercises will be introduced and as well as a comprehensive home exercise program upon discharge, if needed, ?to ensure carryover of functional gains achieved in the clinic. This treatment plan has been reviewed and agreement upon by the patient.
== END 2025-09-22 23:59 | disposition home or self-care (01) ==
LOC: ANHGOSHPT 09:30
PROVIDERS: PCP Family Medicine; Visit Provider Orthopaedic Surgery
DX: S82.044D Nondisplaced comminuted fracture of right patella, subsequent encounter for closed fracture with routine healing (principal)
CPT/HCPCS: 97016; 97110; 97112; 97116; 97140; 97161; 97530